=== PATIENT | female | born 1950 | race Caucasian/White ===

== ENCOUNTER 2018-01-05 21:47 | Emergency (ER) | payer MEDICARE, MEDICAID ==
[2018-01-05] MEDS ORDERED: Acetaminophen/HYDROcodone 325-10 MG Tab PO ONE (21:48)
[2018-01-05 22:16] VITALS: BP 154/57
--- NOTE | 2018-01-05 22:55 | EDM.PDOC ---
ED HPI GENERAL MEDICAL PROBLEM - General Chief Complaint: Lower Extremity Injury/Pain Stated Complaint: [id number] FELL-ID IS Time Seen by Provider: 01/05/18 22:51 Source of Information: Reports: Patient History Limitations: Reports: No Limitations - History of Present Illness INITIAL COMMENTS - FREE TEXT/NARRATIVE: fell onto right knee today, more swollen tyelnol not helping. Treatments PRECISION INSPECTOR: Reports: Acetaminophen, Other (see below) Other Treatments PRECISION INSPECTOR: icy hot patch. Right Knee Pain Score (Numeric/FACES): 8 - Related Data Allergies Allergy/AdvReac Type Severity Reaction Status Date / Time No Known Allergies Allergy Verified 01/05/18 22:12 Home Meds: Home Meds Albuterol [Proventil Neb Soln] 2.5 mg NEB Q4HRRT PRN #180 ml 01/03/15 [Rx] Albuterol/Ipratropium [DuoNeb 3.0-0.5 MG/3 ML] 3 ml NEB TIDRT #180 ml 01/03/15 [ Rx] Metoprolol Tartrate [Lopressor] 25 mg PO Q12HR tablet 01/03/15 [Rx] Tiotropium [Spiriva HandiHaler] 18 mcg INH DAILY cap 01/03/15 [Rx] guaiFENesin [Mucinex] 600 mg PO BID tab.er 01/03/15 [Rx] Roflumilast [Daliresp] 1 tab PO DAILY 01/05/18 [History] Past Medical History - Past Health History Medical/Surgical History: Denies Medical/Surgical History HEENT History: Reports: Impaired Vision Cardiovascular History: Reports: Hypertension Respiratory History: Reports: COPD 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 ED EXAM, GENERAL - Physical Exam Exam: See Below Exam Limited By: No Limitations General Appearance: Alert, WD/WN, Mild Distress, Other (knee pain) Ears: Hearing Grossly Normal Throat/Mouth: Normal Voice, No Airway Compromise Head: Atraumatic Neck: Non-Tender, Full Range of Motion Respiratory/Chest: No Respiratory Distress Cardiovascular: Regular Rate, Rhythm GI/Abdominal: Soft, Non-Tender Extremities: Other (right knee swollen tender R/P, NV wnl, gait limited to pain. ) Neurological: Alert, Oriented, Normal Cognition, No Motor/Sensory Deficits Psychiatric: Normal Affect, Normal Mood Skin Exam: Warm, Dry, Normal Color Lymphatic: No Adenopathy Course - Vital Signs Last Recorded V/S: Last Vital Signs Temp 37.3 C 01/05/18 22:14 Pulse 74 01/05/18 22:14 Resp 20 01/05/18 22:14 BP 154/57 H 01/05/18 22:14 Pulse Ox 97 01/05/18 22:14 - Orders/Labs/Meds Meds: Medications Discontinued Medications Generic Name Dose Route Start Last Admin Trade Name Freq PRN Reason Stop Dose Admin Ibuprofen 600 mg 01/05/18 22:51 Motrin PO 01/05/18 22:52 ONETIME ONE - Re-Assessments/Exams Free Text/Narrative Re-Assessment/Exam: 01/05/18 23:15 results discussed with pt. Departure - Departure Time of Disposition: 23:15 Disposition: Home, Self-Care 01 Condition: Good Clinical Impression: Knee effusion, right Patellar fracture Qualifiers: Encounter type: initial encounter Fracture type: closed Fracture morphology: transverse Fracture alignment: nondisplaced Laterality: right Qualified Code(s) : S82.034A - Nondisplaced transverse fracture of right patella, initial encounter for closed fracture - Discharge Information Instructions: Patellar Fracture, Adult Referrals: Cassidy Rowland PA-C [Primary Care Provider] - Forms: ED Department Discharge Additional Instructions: 1) elevate leg as much as possible next 3 to 4 days 2) wear knee immobilizer and use crutches 3) see clinic tomorrow for ORTHOPEDIC REFERRAL for PATELLA FRACTURE and KNEE EFFUSION rx togo; norco x 1
[2018-01-05] MEDS: Ibuprofen 600 MG Tab PO ONE (23:15)
[2018-01-05] MEDS ORDERED: Acetaminophen/HYDROcodone 325-10 MG Tab ONE (23:24)
== END 2018-01-05 23:30 | disposition home or self-care (01) ==
LOC: DL.ED 21:47
DX: S82.034A Nondisplaced transverse fracture of right patella, initial encounter for closed fracture (principal); Z79.899 Other long term (current) drug therapy; I10 Essential (primary) hypertension; J44.9 Chronic obstructive pulmonary disease, unspecified; W19.XXXA Unspecified fall, initial encounter
CPT/HCPCS: 73562; 99283; A9270

== ENCOUNTER 2019-03-29 01:01 | Emergency (ER) | payer MEDICARE, MEDICAID ==
[2019-03-29 01:13] VITALS: BP 190/103
[2019-03-29] MEDS ORDERED: Sodium Chloride 0.9% 10 ML Syringe FLUSH PRN (01:18)
--- NOTE | 2019-03-29 01:19 | EDM.PDOC ---
ED HPI GENERAL MEDICAL PROBLEM - General Chief Complaint: General Stated Complaint: NOT SURE WHATS GOING ON? Time Seen by Provider: 03/29/19 01:19 Source of Information: Reports: Patient, Family, RN, RN Notes Reviewed History Limitations: Reports: No Limitations - History of Present Illness INITIAL COMMENTS - FREE TEXT/NARRATIVE: Pt to ER with daughter with c/o increased SOB, and an ache in the right side of the neck, the chest, and the right upper arm. States there is intermittent tingling to the right lower arm and hand. Describes pain to the right axilla as "someone pulling the hair in the armpit". Denies recent fever or chills, N/V/D. States she has been belching quite a bit lately. Pt denies sore throat, cough. Admits to the dull ache in the center of the chest and increased SOB over the past few days. States she has a hx of HTN. States she is on 2L of O2 at all times. Onset: Gradual Bilateral Upper Arm Pain Score (Numeric/FACES): 3 - Related Data Allergies Allergy/AdvReac Type Severity Reaction Status Date / Time No Known Allergies Allergy Verified 03/29/19 01:06 Home Meds: Home Meds Albuterol [Proventil Neb Soln] 2.5 mg NEB Q4HRRT PRN #180 ml 01/03/15 [Rx] Albuterol/Ipratropium [DuoNeb 3.0-0.5 MG/3 ML] 3 ml NEB TIDRT #180 ml 01/03/15 [ Rx] Metoprolol Tartrate [Lopressor] 25 mg PO Q12HR tablet 01/03/15 [Rx] guaiFENesin [Mucinex] 600 mg PO BID tab.er 01/03/15 [Rx] Roflumilast [Daliresp] 1 tab PO DAILY 01/05/18 [History] Umeclidinium [place] [Incruse Ellipta*] 62.5 mcg IH DAILY 03/29/19 [History] Past Medical History - Past Health History Medical/Surgical History: Denies Medical/Surgical History HEENT History: Reports: Impaired Vision Cardiovascular History: Reports: Hypertension Respiratory History: Reports: COPD Gastrointestinal History: Reports: Chronic Constipation 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 ED EXAM, GENERAL - Physical Exam Exam: See Below Exam Limited By: No Limitations General Appearance: Alert, WD/WN, Mild Distress Eye Exam: Bilateral Eye: EOMI, Normal Inspection Ears: Normal External Exam, Hearing Grossly Normal Nose: Normal Inspection Throat/Mouth: Normal Inspection, Normal Lips, Normal Teeth, Normal Gums, Normal Oropharynx, Normal Voice, No Airway Compromise Head: Atraumatic, Normocephalic Neck: Supple, Full Range of Motion, Lymphadenopathy (R), Tender Lateral (right) Respiratory/Chest: Decreased Breath Sounds, Crackles (throughout), Other (mid chest tenderness) Cardiovascular: Normal Peripheral Pulses, Regular Rate, Rhythm, No Edema, No Gallop, No JVD, No Murmur, No Rub Peripheral Pulses: 2+: Radial (L), Radial (R) GI/Abdominal: Normal Bowel Sounds, Soft, Non-Tender (Female) Exam: Deferred Rectal (Female) Exam: Deferred Back Exam: Normal Inspection, Full Range of Motion Extremities: Normal Inspection, Normal Range of Motion, Non-Tender, Normal Capillary Refill, No Pedal Edema Neurological: Alert, Oriented, CN II-XII Intact, Normal Cognition, Normal Gait, Normal Reflexes, No Motor/Sensory Deficits Psychiatric: Normal Affect, Normal Mood Skin Exam: Warm, Dry, Intact, Normal Color, No Rash Lymphatic: No Adenopathy Course - Vital Signs Last Recorded V/S: Last Vital Signs Temp 98.4 F 03/29/19 01:12 Pulse 72 03/29/19 01:12 Resp 22 H 03/29/19 01:12 BP 190/103 H 03/29/19 01:12 Pulse Ox 91 L 03/29/19 01:12 - Orders/Labs/Meds Orders: Active Orders 24 hr Category Date Time Status EKG Documentation Completion [RC] STAT Care 03/29/19 01:18 Active Peripheral IV Care [RC] . DIRECTED Care 03/29/19 01:19 Active Chest 2V [CR] Urgent Exams 03/29/19 01:19 Taken Azithromycin [Zithromax] Med 03/29/19 02:20 Once 500 mg PO ONETIME ONE Sodium Chloride 0.9% [Saline Flush] Med 03/29/19 01:18 Active 10 ml FLUSH ASDIRECTED PRN Peripheral IV Insertion Adult [OM.PC] Stat Oth 03/29/19 01:18 Ordered Medication Orders Sodium Chloride (Saline Flush) 10 ml FLUSH ASDIRECTED PRN PRN Reason: Keep Vein Open Last Admin: 03/29/19 01:37 Dose: 10 ml Labs: Laboratory Tests 03/29/19 03/29/19 Range/Units 01:28 01:28 WBC 7.3 (5.0-10.0) 10^3/uL RBC 4.58 (4.2-5.4) 10^6/uL Hgb 13.0 (12.0-16.0) g/dL Hct 39.3 (37.0-47.0) % MCV 85.8 (80-100) fL MCH 28.4 (27.0-34.0) pg MCHC 33.1 (33.0-35.0) g/dL Plt Count 290 D (150-450) 10^3/uL Neut % (Auto) 68.1 (42.2-75.2) % Lymph % (Auto) 21.6 (20.5-50.1) % [place] % (Auto) 7.7 (2-8) % Eos % (Auto) 1.9 (1.0-3.0) % Baso % (Auto) 0.7 (0.0-1.0) % Sodium 130 L (135-145) mmol/L Potassium 4.2 (3.6-5.0) mmol/L Chloride 93 L (101-111) mmol/L Carbon Dioxide 28.0 (21.0-31.0) mmol/L Anion Gap 13.2 BUN 11 (7-18) mg/dL Creatinine 0.4 L (0.6-1.3) mg/dL Est Cr Clr Drug Dosing 114.54 mL/min Estimated GFR (MDRD) > 60 BUN/Creatinine Ratio 27.50 Glucose 107 H (74-105) mg/dL Calcium 9.1 (8.4-10.2) mg/dl Total Bilirubin 0.7 (0.2-1.0) mg/dL AST 17 (10-42) IU/L ALT 10 (10-60) IU/L Alkaline Phosphatase 82 (42-121) IU/L Troponin I < 0.02 (0.00-0.02) ng/ml B-Natriuretic Peptide 143 H (0-100) pg/ml Total Protein 7.7 (6.7-8.2) g/dl Albumin 3.9 (3.2-5.5) g/dl Globulin 3.8 Albumin/Globulin Ratio 1.03 Meds: Medications Generic Name Dose Route Start Last Admin Trade Name Freq PRN Reason Stop Dose Admin Sodium Chloride 10 ml 03/29/19 01:18 03/29/19 01:37 Saline Flush FLUSH 10 ml ASDIRECTED PRN Administration Keep Vein Open Discontinued Medications Generic Name Dose Route Start Last Admin Trade Name Freq PRN Reason Stop Dose Admin Methylprednisolone Sodium Succinate 125 mg 03/29/19 02:03 03/29/19 02:17 Solu-Medrol IVPUSH 03/29/19 02:04 125 mg ONETIME ONE Administration - Radiology Interpretation Free Text/Narrative:: Chest xray: FINDINGS: Lungs: Emphysematous changes. No evidence of pneumonia, pulmonary vascular congestion, or pulmonary edema. Pleural space: No pneumothorax. Small bilateral pleural effusions. Heart/Mediastinum: No cardiomegaly. Bones/joints: Severe bone demineralization. IMPRESSION: 1. Emphysematous changes. No evidence of pneumonia, pulmonary vascular congestion, or pulmonary edema. 2. Small bilateral pleural effusions. Thank you for allowing us to participate in the care of your patient. Dictated and Authenticated by: Joao Calloway MD 03/29/2019 2:10 AM Central Time ([place] & [place]) See rad report Departure - Departure Time of Disposition: 02:21 Disposition: Home, Self-Care 01 Condition: Fair Clinical Impression: COPD exacerbation - Discharge Information *PRESCRIPTION DRUG MONITORING PROGRAM REVIEWED*: No *COPY OF PRESCRIPTION DRUG MONITORING REPORT IN PATIENT AMANDO: No Instructions: Chronic Obstructive Pulmonary Disease Exacerbation, [id number] , Chronic Obstructive Pulmonary Disease, [id number] Forms: ED Department Discharge Additional Instructions: RX: Prednisone, Azithromycin Continue to use nebulizers and inhalers as directed Drink plenty of water and Gatorade Follow up with your primary care facility - My Orders Last 24 Hours: My Active Orders 03/29/19 01:18 EKG Documentation Completion [RC] STAT Sodium Chloride 0.9% [Saline Flush] 10 ml FLUSH ASDIRECTED PRN Peripheral IV Insertion Adult [OM.PC] Stat 03/29/19 01:19 Peripheral IV Care [RC] . DIRECTED Chest 2V [CR] Urgent 03/29/19 02:20 Azithromycin [Zithromax] 500 mg PO ONETIME ONE - Assessment/Plan Last 24 Hours: My Active Orders 03/29/19 01:18 EKG Documentation Completion [RC] STAT Sodium Chloride 0.9% [Saline Flush] 10 ml FLUSH ASDIRECTED PRN Peripheral IV Insertion Adult [OM.PC] Stat 03/29/19 01:19 Peripheral IV Care [RC] . DIRECTED Chest 2V [CR] Urgent 03/29/19 02:20 Azithromycin [Zithromax] 500 mg PO ONETIME ONE
[2019-03-29 01:52] LABS: ANION GAP 13.2; CHLORIDE,CL 93 mmol/L (101-111); SODIUM,NA 130 mmol/L (135-145)
[2019-03-29] MEDS ORDERED: methylPREDNISolone Sodium Succinate 125 MG/2 ML SDV IVPUSH ONE (02:03)
[2019-03-29] MEDS ORDERED: Azithromycin 250 MG Tab PO ONE (02:20)
== END 2019-03-29 02:32 | disposition home or self-care (01) ==
LOC: DL.ED 01:01
DX: J44.1 Chronic obstructive pulmonary disease with (acute) exacerbation (principal); I10 Essential (primary) hypertension; Z87.891 Personal history of nicotine dependence
CPT/HCPCS: 36415; 71046; 80053; 83880; 84484; 85025; 93005; 96374; 99285; A9270; J2930

== ENCOUNTER 2019-04-02 01:16 | Emergency (ER) | payer MEDICARE, MEDICAID ==
--- NOTE | 2019-04-02 01:39 | EDM.PDOC ---
ED HPI GENERAL MEDICAL PROBLEM - General Stated Complaint: CHEST HURTS Time Seen by Provider: 04/02/19 01:36 Source of Information: Reports: Patient History Limitations: Reports: No Limitations - History of Present Illness INITIAL COMMENTS - FREE TEXT/NARRATIVE: c/o heartburn pain in upper chest, denies SOB. ate meat loaf tonight and "burped " it back up and not vomited. did feel little better afterwards but pain returned. also noted her heart rate dropped to 50s at onetime then went back up. Upper Anterior Chest Pain Score (Numeric/FACES): 3 - Related Data Allergies Allergy/AdvReac Type Severity Reaction Status Date / Time No Known Allergies Allergy Verified 03/29/19 01:06 Home Meds: Home Meds Albuterol [Proventil Neb Soln] 2.5 mg NEB Q4HRRT PRN #180 ml 01/03/15 [Rx] Albuterol/Ipratropium [DuoNeb 3.0-0.5 MG/3 ML] 3 ml NEB TIDRT #180 ml 01/03/15 [ Rx] Metoprolol Tartrate [Lopressor] 25 mg PO Q12HR tablet 01/03/15 [Rx] guaiFENesin [Mucinex] 600 mg PO BID tab.er 01/03/15 [Rx] Roflumilast [Daliresp] 1 tab PO DAILY 01/05/18 [History] Umeclidinium [place] [Incruse Ellipta*] 62.5 mcg IH DAILY 03/29/19 [History] Azithromycin [Zithromax] 250 mg PO DAILY 04/02/19 [History] predniSONE 40 mg PO ASDIRECTED 04/02/19 [History] Past Medical History - Past Health History Medical/Surgical History: Denies Medical/Surgical History HEENT History: Reports: Impaired Vision Cardiovascular History: Reports: Hypertension Respiratory History: Reports: COPD Gastrointestinal History: Reports: Chronic Constipation 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 ED EXAM, GENERAL - Physical Exam Exam: See Below Exam Limited By: No Limitations General Appearance: Alert, WD/WN, Mild Distress Ears: Hearing Grossly Normal Throat/Mouth: Normal Voice, No Airway Compromise Head: Atraumatic Neck: Non-Tender, Full Range of Motion Respiratory/Chest: No Respiratory Distress, No Accessory Muscle Use, Rhonchi. No: Decreased Breath Sounds Cardiovascular: Regular Rate, Rhythm GI/Abdominal: Soft, Non-Tender Neurological: Alert, Oriented, Normal Cognition, Normal Gait, No Motor/Sensory Deficits Psychiatric: Normal Affect, Normal Mood Skin Exam: Warm, Dry, Normal Color Lymphatic: No Adenopathy Course - Vital Signs Last Recorded V/S: Last Vital Signs Temp 36.7 C 04/02/19 02:30 Pulse 64 04/02/19 02:30 Resp 20 04/02/19 02:30 BP 120/90 04/02/19 02:30 Pulse Ox 97 04/02/19 02:30 - Orders/Labs/Meds Orders: Active Orders 24 hr Category Date Time Status EKG Documentation Completion [RC] STAT Care 04/02/19 01:39 Active Chest 1V Frontal [CR] Urgent Exams 04/02/19 01:56 Ordered Labs: Laboratory Tests 04/02/19 04/02/19 04/02/19 Range/Units 01:50 01:50 01:50 WBC 8.7 (5.0-10.0) 10^3/uL RBC 4.45 (4.2-5.4) 10^6/uL Hgb 12.7 (12.0-16.0) g/dL Hct 38.1 (37.0-47.0) % MCV 85.6 (80-100) fL MCH 28.5 (27.0-34.0) pg MCHC 33.3 (33.0-35.0) g/dL Plt Count 303 (150-450) 10^3/uL Neut % (Auto) 71.6 (42.2-75.2) % Lymph % (Auto) 20.8 (20.5-50.1) % [place] % (Auto) 6.8 (2-8) % Eos % (Auto) 0.6 L (1.0-3.0) % Baso % (Auto) 0.2 (0.0-1.0) % Sodium 130 L (135-145) mmol/L Potassium 4.1 (3.6-5.0) mmol/L Chloride 93 L (101-111) mmol/L Carbon Dioxide 27.0 (21.0-31.0) mmol/L Anion Gap 14.1 BUN 18 (7-18) mg/dL Creatinine 0.5 L (0.6-1.3) mg/dL Est Cr Clr Drug Dosing 90.16 mL/min Estimated GFR (MDRD) > 60 BUN/Creatinine Ratio 36.00 Glucose 110 H (74-105) mg/dL Lactic Acid 0.7 (0.5-2.2) mmol/L Calcium 9.1 (8.4-10.2) mg/dl Total Bilirubin 0.6 (0.2-1.0) mg/dL AST 18 (10-42) IU/L ALT 13 (10-60) IU/L Alkaline Phosphatase 75 (42-121) IU/L Troponin I < 0.02 (0.00-0.02) ng/ml Total Protein 7.3 (6.7-8.2) g/dl Albumin 3.8 (3.2-5.5) g/dl Globulin 3.5 Albumin/Globulin Ratio 1.09 - Re-Assessments/Exams Free Text/Narrative Re-Assessment/Exam: 04/02/19 02:18 re-exam; pain all gone right now. 04/02/19 02:58 results discussed with pt who remains pain free. Departure - Departure Time of Disposition: 03:00 Disposition: Home, Self-Care 01 Condition: Good Clinical Impression: GERD (gastroesophageal reflux disease) Qualifiers: Esophagitis presence: with esophagitis Qualified Code(s): K21.0 - Gastro- esophageal reflux disease with esophagitis Instructions: Food Choices for Gastroesophageal Reflux Disease, Adult, Easy-to- Read Referrals: PCP,None [Primary Care Provider] - Additional Instructions: 1) follow up at clinic - My Orders Last 24 Hours: My Active Orders 04/02/19 01:39 EKG Documentation Completion [RC] STAT 04/02/19 01:56 Chest 1V Frontal [CR] Urgent - Assessment/Plan Last 24 Hours: My Active Orders 04/02/19 01:39 EKG Documentation Completion [RC] STAT 04/02/19 01:56 Chest 1V Frontal [CR] Urgent
[2019-04-02 02:14] LABS: ANION GAP 14.1; CHLORIDE,CL 93 mmol/L (101-111); SODIUM,NA 130 mmol/L (135-145)
[2019-04-02 02:48] VITALS: BP 120/90
== END 2019-04-02 03:10 | disposition home or self-care (01) ==
LOC: DL.ED 01:16
DX: K21.0 Gastro-esophageal reflux disease with esophagitis (principal); I10 Essential (primary) hypertension; J44.9 Chronic obstructive pulmonary disease, unspecified; M19.90 Unspecified osteoarthritis, unspecified site; Z79.899 Other long term (current) drug therapy
CPT/HCPCS: 36415; 71045; 80053; 83605; 84484; 85025; 93005; 99285-25

== ENCOUNTER 2020-07-19 12:30 | Emergency (ER) | payer MEDICARE, SELFPAY ==
[2020-07-19 13:04] VITALS: BP 162/124; PULSE 94
[2020-07-19 14:16] LABS: ANION GAP 9.5 mEq/L (7-13); CHLORIDE,CL 96 mmol/L (98-107); SODIUM,NA 132 mmol/L (136-145)
--- NOTE | 2020-07-19 15:34 | EDM.PDOC ---
ED HPI GENERAL MEDICAL PROBLEM - General Chief Complaint: Respiratory Problem Stated Complaint: HEAD COLD CANT BREATH COUGHING UP FLEM Time Seen by Provider: 07/19/20 12:40 Source of Information: Reports: Patient, RN, RN Notes Reviewed History Limitations: Reports: No Limitations - History of Present Illness INITIAL COMMENTS - FREE TEXT/NARRATIVE: Patient is a 70-year-old female who presents to ER with complaint of increased shortness of breath and head cold. Her nose is stuffed up and dark yellow sputum. No cough. he is on 02 at 2 liters at the home. She has constipation. She has chest pain prior to belching with increased shortness of breathing after moving around. No fever, chills, nausea, vomiting or diarrhea. Onset: Gradual Duration: Getting Worse Location: Reports: Chest Quality: Reports: Ache Severity: Severe Improves with: Reports: None Worsens with: Reports: None Associated Symptoms: Reports: No Other Symptoms - Related Data Allergies Allergy/AdvReac Type Severity Reaction Status Date / Time No Known Allergies Allergy Verified 07/19/20 12:50 Home Meds: Home Meds Albuterol [Proventil Neb Soln] 2.5 mg NEB Q4HRRT PRN #180 ml 01/03/15 [Rx] Albuterol/Ipratropium [DuoNeb 3.0-0.5 MG/3 ML] 3 ml NEB TIDRT #180 ml 01/03/15 [Rx] Metoprolol Tartrate [Lopressor] 25 mg PO Q12HR tablet 01/03/15 [Rx] guaiFENesin [Mucinex] 600 mg PO BID tab.er 01/03/15 [Rx] Roflumilast [Daliresp] 1 tab PO DAILY 01/05/18 [History] Umeclidinium [place] [Incruse Ellipta*] 62.5 mcg IH DAILY 03/29/19 [History] Past Medical History - Past Health History Medical/Surgical History: Denies Medical/Surgical History HEENT History: Reports: Impaired Vision Cardiovascular History: Reports: Hypertension Respiratory History: Reports: COPD, Other (See Below) Other Respiratory History: Home O2 at 2L/NC Gastrointestinal History: Reports: Chronic Constipation 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 ED EXAM, GENERAL - Physical Exam Exam: See Below Exam Limited By: No Limitations General Appearance: Alert, WD/WN, No Apparent Distress Eye Exam: Bilateral Eye: EOMI, Normal Inspection, PERRL Ears: Normal External Exam, Normal Canal, Hearing Grossly Normal, Normal TMs Nose: Other ( with 02 with nasal cannula) Throat/Mouth: Normal Inspection, Normal Lips, Normal Teeth, Normal Gums, Normal Oropharynx, Normal Voice, No Airway Compromise Head: Atraumatic, Normocephalic Neck: Normal Inspection, Supple, Non-Tender, Full Range of Motion Respiratory/Chest: Other (decreased with crackles throughout. ) Cardiovascular: Normal Peripheral Pulses, Regular Rate, Rhythm, No Edema, No Gallop, No JVD, No Murmur, No Rub GI/Abdominal: Normal Bowel Sounds, Soft, Non-Tender, No Organomegaly, No Distention, No Abnormal Bruit, No Mass (Female) Exam: Deferred Rectal (Female) Exam: Deferred Back Exam: Normal Inspection, Full Range of Motion, NT Extremities: Other (lower extremities edema +2. ) Neurological: Alert, Oriented, CN II-XII Intact, Normal Cognition, Normal Gait, Normal Reflexes, No Motor/Sensory Deficits Psychiatric: Normal Affect, Normal Mood Skin Exam: Warm, Dry, Intact, Normal Color, No Rash Lymphatic: No Adenopathy Course - Vital Signs Last Recorded V/S: Last Vital Signs Temp 97.9 F 07/19/20 12:39 Pulse 94 07/19/20 12:39 Resp 34 H 07/19/20 12:39 BP 162/124 H 07/19/20 12:39 Pulse Ox 93 L 07/19/20 12:39 - Orders/Labs/Meds Orders: Active Orders 24 hr Category Date Time Status CULTURE BLOOD [BC] Stat Lab 07/19/20 13:38 Received CULTURE BLOOD [BC] Stat Lab 07/19/20 13:42 Received CULTURE URINE [RM] Stat Lab 07/19/20 16:59 Received Blood Culture x2 Reflex Set [OM.PC] Stat Oth 07/19/20 13:21 Ordered Isolation [COMM] Routine Oth 07/19/20 13:22 Active Labs: Laboratory Tests 07/19/20 07/19/20 07/19/20 Range/Units 13:36 13:42 13:42 WBC 10.8 H (5.0-10.0) 10^3/uL RBC 4.53 (4.2-5.4) 10^6/uL Hgb 13.0 (12.0-16.0) g/dL Hct 39.8 (37.0-47.0) % MCV 87.9 (80-100) fL MCH 28.7 (27.0-34.0) pg MCHC 32.7 L (33.0-35.0) g/dL Plt Count 319 (150-450) 10^3/uL Neut % (Auto) 84.3 H (42.2-75.2) % Lymph % (Auto) 9.0 L (20.5-50.1) % [place] % (Auto) 5.7 (2-8) % Eos % (Auto) 0.7 L (1.0-3.0) % Baso % (Auto) 0.3 (0.0-1.0) % PT (9.0-12.0) SEC INR (0.9-1.2) D-Dimer, Quantitative (0-400) ng/mL Sodium 132 L (136-145) mmol/L Potassium 4.5 (3.5-5.1) mmol/L Chloride 96 L (98-107) mmol/L Carbon Dioxide 31 (21-32) mmol/L Anion Gap 9.5 (7-13) mEq/L BUN 10 (7-18) mg/dL Creatinine 0.60 (0.55-1.02) mg/dL Est Cr Clr Drug Dosing 75.25 mL/min Estimated GFR (MDRD) > 60 BUN/Creatinine Ratio 16.7 (No establ ref range) Glucose 117 H (74-99) mg/dL Calcium 9.7 (8.5-10.1) mg/dL Total Bilirubin 0.4 (0.2-1.0) mg/dL AST 16 (15-37) U/L ALT 16 (14-59) U/L Alkaline Phosphatase 99 (46-116) U/L Troponin I (0.000-0.056) ng/mL C-Reactive Protein 4.0 H (0.0-0.9) mg/dL B-Natriuretic Peptide 338 H (0-100) pg/ml Total Protein 7.9 (6.4-8.2) g/dL Albumin 3.3 L (3.4-5.0) g/dL Globulin 4.6 Albumin/Globulin Ratio 0.72 Urine Color (YELLOW) Urine Appearance (CLEAR) Urine pH (5.0-9.0) Ur Specific [place] (1.005-1.030) Urine Protein (NEGATIVE) Urine Glucose (UA) (NEGATIVE) Urine Ketones (NEGATIVE) Urine Occult Blood (NEGATIVE) Urine Nitrite (NEGATIVE) Urine Bilirubin (NEGATIVE) Urine Urobilinogen (0.2-1.0) mg/dL Ur Leukocyte Esterase (NEGATIVE) Urine RBC /HPF Urine WBC (0-5/HPF) /HPF Ur Epithelial Cells (NOT SEEN) /HPF Amorphous Sediment (NOT SEEN) /HPF Urine Bacteria (0-FEW/HPF) /HPF Urine Mucus (NOT SEEN) /LPF SARS-CoV-2 RNA (PAULINA) Negative (NEGATIVE) 07/19/20 07/19/20 07/19/20 Range/Units 13:42 13:42 16:59 WBC (5.0-10.0) 10^3/uL RBC (4.2-5.4) 10^6/uL Hgb (12.0-16.0) g/dL Hct (37.0-47.0) % MCV (80-100) fL MCH (27.0-34.0) pg MCHC (33.0-35.0) g/dL Plt Count (150-450) 10^3/uL Neut % (Auto) (42.2-75.2) % Lymph % (Auto) (20.5-50.1) % [place] % (Auto) (2-8) % Eos % (Auto) (1.0-3.0) % Baso % (Auto) (0.0-1.0) % PT 10.1 (9.0-12.0) SEC INR 1.1 (0.9-1.2) D-Dimer, Quantitative 142 (0-400) ng/mL Sodium (136-145) mmol/L Potassium (3.5-5.1) mmol/L Chloride (98-107) mmol/L Carbon Dioxide (21-32) mmol/L Anion Gap (7-13) mEq/L BUN (7-18) mg/dL Creatinine (0.55-1.02) mg/dL Est Cr Clr Drug Dosing mL/min Estimated GFR (MDRD) BUN/Creatinine Ratio (No establ ref range) Glucose (74-99) mg/dL Calcium (8.5-10.1) mg/dL Total Bilirubin (0.2-1.0) mg/dL AST (15-37) U/L ALT (14-59) U/L Alkaline Phosphatase (46-116) U/L Troponin I < 0.017 (0.000-0.056) ng/mL C-Reactive Protein (0.0-0.9) mg/dL B-Natriuretic Peptide (0-100) pg/ml Total Protein (6.4-8.2) g/dL Albumin (3.4-5.0) g/dL Globulin Albumin/Globulin Ratio Urine Color Yellow (YELLOW) Urine Appearance Slightly cloudy (CLEAR) Urine pH 6.0 (5.0-9.0) Ur Specific [place] 1.025 (1.005-1.030) Urine Protein Negative (NEGATIVE) Urine Glucose (UA) Negative (NEGATIVE) Urine Ketones 15 H (NEGATIVE) Urine Occult Blood Negative (NEGATIVE) Urine Nitrite Negative (NEGATIVE) Urine Bilirubin Negative (NEGATIVE) Urine Urobilinogen 0.2 (0.2-1.0) mg/dL Ur Leukocyte Esterase Small H (NEGATIVE) Urine RBC 0-5 /HPF Urine WBC 30-40 H (0-5/HPF) /HPF Ur Epithelial Cells Few (NOT SEEN) /HPF Amorphous Sediment Few (NOT SEEN) /HPF Urine Bacteria Few (0-FEW/HPF) /HPF Urine Mucus Moderate H (NOT SEEN) /LPF SARS-CoV-2 RNA (PAULINA) (NEGATIVE) Meds: Medications Discontinued Medications Generic Name Dose Route Start Last Admin Trade Name Freq PRN Reason Stop Dose Admin Furosemide 40 mg 07/19/20 16:28 07/19/20 16:48 Lasix PO 07/19/20 16:29 40 mg ONETIME ONE Administration Levofloxacin 500 mg 07/19/20 16:29 07/19/20 16:48 Levaquin PO 07/19/20 16:30 500 mg ONETIME ONE Administration - Radiology Interpretation Free Text/Narrative:: Chest xray: PROCEDURE INFORMATION: Exam: XR Chest, 1 View Exam date and time: 07/19/2020 2:59 PM Age: 70 years old Clinical indication: Other: Chest pain TECHNIQUE: Imaging protocol: XR of the chest Views: 1 view. COMPARISON: CR Chest 2V 03/19/2017 5:18 PM FINDINGS: Lungs: Chronic appearing interstitial changes are present with more focal airspace opacity within the right lower lobe. The finding is not could represent pneumonia. There is no pulmonary edema. Pleural space: Unremarkable. No pleural effusion. No pneumothorax. Heart/Mediastinum: Heart size is mildly prominent. Bones/joints: Unremarkable. IMPRESSION: Chronic appearing interstitial change with more focal airspace opacity in the right lower lobe concerning for possible pneumonia. Thank you for allowing us to participate in the care of your patient. Dictated and Authenticated by: Johnny Hemphill MD 07/19/2020 4:19 PM Central Time ([place] & [place]) See rad report Departure - Departure Time of Disposition: 16:27 Disposition: Home, Self-Care 01 Condition: Fair Clinical Impression: Pneumonia Qualifiers: Pneumonia type: due to unspecified organism Laterality: right Lung location: lower lobe of lung Qualified Code(s): J18.9 - Pneumonia, unspecified organism - Discharge Information *PRESCRIPTION DRUG MONITORING PROGRAM REVIEWED*: No *COPY OF PRESCRIPTION DRUG MONITORING REPORT IN PATIENT AMANDO: No Instructions: Community-Acquired Pneumonia, Adult, [id number] Referrals: PCP,None [Primary Care Provider] - Forms: ED Department Discharge Additional Instructions: Rx: Levaquin Follow-up with your primary care provider next week in the clinic Return to the ER with any worsening of symptoms Sepsis Event Note (ED) - Evaluation Sepsis Screening Result: Possible Sepsis Risk - Focused Exam Vital Signs: Vital Signs Temp Pulse Resp BP Pulse Ox 07/19/20 12:39 97.9 F 94 34 H 162/124 H 93 L - My Orders Last 24 Hours: My Active Orders 07/19/20 13:21 Blood Culture x2 Reflex Set [OM.PC] Stat 07/19/20 13:22 Isolation [COMM] Routine 07/19/20 13:38 CULTURE BLOOD [BC] Stat 07/19/20 13:42 CULTURE BLOOD [BC] Stat 07/19/20 16:59 CULTURE URINE [RM] Stat - Assessment/Plan Last 24 Hours: My Active Orders 07/19/20 13:21 Blood Culture x2 Reflex Set [OM.PC] Stat 07/19/20 13:22 Isolation [COMM] Routine 07/19/20 13:38 CULTURE BLOOD [BC] Stat 07/19/20 13:42 CULTURE BLOOD [BC] Stat 07/19/20 16:59 CULTURE URINE [RM] Stat
[2020-07-19] MEDS ORDERED: Furosemide 40 MG Tab PO ONE (16:28)
[2020-07-19] MEDS ORDERED: Levofloxacin 500 MG Tab PO ONE (16:29)
== END 2020-07-19 17:22 | disposition home or self-care (01) ==
LOC: DL.ED 12:30
DX: J18.9 Pneumonia, unspecified organism (principal); Z20.828 Contact with and (suspected) exposure to other viral communicable diseases; I10 Essential (primary) hypertension; J44.9 Chronic obstructive pulmonary disease, unspecified; Z87.891 Personal history of nicotine dependence; Z79.899 Other long term (current) drug therapy
CPT/HCPCS: 36415; 71045; 80053; 81001; 83880; 84484; 85025; 85379; 85610; 86140; 87040; 87086; 87804; 93005; 99285; A9270; U0002; 99283

== ENCOUNTER 2020-11-09 08:42 | Inpatient (IN) | payer MEDICARE, OTHER ==
[2020-11-09] MEDS ORDERED: Albuterol/Ipratropium 3.0-0.5 MG/3 ML Neb Soln NEB ONE (08:45)
[2020-11-09] MEDS ORDERED: Sodium Chloride 0.9% 10 ML Syringe FLUSH PRN (08:45)
--- NOTE | 2020-11-09 08:45 | EDM.PDOC ---
ED HPI GENERAL MEDICAL PROBLEM - General Chief Complaint: Respiratory Problem Stated Complaint: copd Time Seen by Provider: 11/09/20 08:44 Source of Information: Reports: Patient, Old Records, RN, RN Notes Reviewed History Limitations: Reports: No Limitations - History of Present Illness INITIAL COMMENTS - FREE TEXT/NARRATIVE: Pt presents to ER with c/o several days of progressively worsening shortness of breath per daughter, but much worse breathing today per pt. Pt reports Hx of COPD. She is continuous supplemental home oxygen dependent at 2L/min. Denies chest pain, fever, or hemoptysis. Admits to generalized weakness, FARRAR, orthopnea, and mild pedal edema. Hx of chronic A-fib but not on anticoagulation. Pt states she has been told in the past that she may have CHF, but has not been treated for it. She has not taken any of her medications so far today. 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 - Related Data Allergies Allergy/AdvReac Type Severity Reaction Status Date / Time No Known Allergies Allergy Verified 11/09/20 08:51 Home Meds: Home Meds Albuterol/Ipratropium [DuoNeb 3.0-0.5 MG/3 ML] 3 ml NEB TIDRT #180 ml 01/03/15 [Rx] guaiFENesin [Mucinex] 600 mg PO BID tab.er 01/03/15 [Rx] Roflumilast [Daliresp] 1 tab PO DAILY 01/05/18 [History] Umeclidinium [place] [Incruse Ellipta*] 62.5 mcg IH DAILY 03/29/19 [History] Albuterol [Proventil Neb Soln] 2.5 mg NEB QID PRN 11/09/20 [History] Metoprolol Tartrate [Lopressor] 25 mg PO BID 11/09/20 [History] Roflumilast [Daliresp] 500 mcg PO DAILY 11/09/20 [History] Past Medical History - Past Health History Medical/Surgical History: Denies Medical/Surgical History HEENT History: Reports: Impaired Vision Cardiovascular History: Reports: Afib, Hypertension Respiratory History: Reports: COPD, Other (See Below) Other Respiratory History: Home O2 at 2L/NC Gastrointestinal History: Reports: Chronic Constipation 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 ED EXAM, GENERAL - Physical Exam Exam: See Below Exam Limited By: No Limitations General Appearance: Alert, Anxious, Thin, Other (Frail, elderly, chronically ill but non-toxic appearing female) Eye Exam: Bilateral Eye: Normal Inspection Nose: Normal Inspection, Normal Mucosa, No Blood Throat/Mouth: Normal Lips, Normal Voice, No Airway Compromise. No: Perioral Cyanosis Head: Atraumatic, Normocephalic Neck: Normal Inspection, Supple, Non-Tender, Full Range of Motion Respiratory/Chest: Chest Non-Tender, Decreased Breath Sounds, Crackles, Rales, Wheezing, Prolonged Expiration, Other (Increased work of breathing, speaking 3-4 word sentences). No: Rhonchi Cardiovascular: Tachycardia, Irregularly Irregular GI/Abdominal: Normal Bowel Sounds, Soft, Non-Tender, No Organomegaly, No Distention, No Abnormal Bruit, No Mass Back Exam: Normal Inspection Extremities: Normal Inspection, Normal Range of Motion, Non-Tender, Normal Capillary Refill, Pedal Edema (Trace) Neurological: Alert, Oriented, CN II-XII Intact, Normal Cognition, No Motor/Sensory Deficits Psychiatric: Anxious Skin Exam: Warm, Dry, Intact, Normal Color, No Rash #1 Interpretation EKG Date: 11/09/20 Time: 08:53 Rhythm: A-Fib Rate (Beats/Min): 128 [place]: Normal P-Wave: Absent QRS: Other (LVH) ST-T: Depressed (in lateral leads) QT: Normal Comparison: NA - No Prior EKG Course - Vital Signs Last Recorded V/S: Last Vital Signs Temp 97.2 F 11/09/20 08:51 Pulse 122 H 11/09/20 08:51 Resp 28 H 11/09/20 08:51 BP 162/92 H 11/09/20 08:51 Pulse Ox 97 11/09/20 08:51 - Orders/Labs/Meds Orders: Active Orders 24 hr Category Date Time Status EKG 12 Lead [EKG Documentation Completion] [RC] STAT Care 11/09/20 08:46 Active Peripheral IV Care [RC] . DIRECTED Care 11/09/20 08:46 Active RT Aerosol Therapy [RC] ASDIRECTED Care 11/09/20 08:45 Active ABG [BLOOD GAS ARTERIAL] [BG] Stat Lab 11/09/20 09:50 Received CORONAVIRUS COVID-19 PAULINA [MOLEC] Stat Lab 11/09/20 09:35 Received CULTURE BLOOD [BC] Stat Lab 11/09/20 08:50 Results CULTURE BLOOD [BC] Stat Lab 11/09/20 09:13 Received Levofloxacin/Dextrose 5%-Water [Levaquin in D5W 500 MG/ Med 11/09/20 09:31 Active 100 ML] 500 mg Premix Bag 1 bag IV ONETIME Sodium Chloride 0.9% [Saline Flush] Med 11/09/20 08:45 Active 10 ml FLUSH ASDIRECTED PRN Blood Culture x2 Reflex Set [OM.PC] Stat Oth 11/09/20 08:45 Ordered Peripheral IV Insertion Adult [OM.PC] Stat Oth 11/09/20 08:46 Ordered Medication Orders Levofloxacin/Dextrose 500 mg/ (Premix) 100 mls @ 100 mls/hr IV ONETIME ONE Stop: 11/09/20 10:30 Last Admin: 11/09/20 09:56 Dose: 100 mls/hr Documented by: GREGG Sodium Chloride (Sodium Chloride 0.9% 10 Ml Syringe) 10 ml FLUSH ASDIRECTED PRN PRN Reason: Keep Vein Open Last Admin: 11/09/20 09:08 Dose: 10 ml Documented by: GREGG Labs: Laboratory Tests 11/09/20 11/09/20 11/09/20 Range/Units 08:50 08:50 08:50 WBC 12.5 H (5.0-10.0) 10^3/uL RBC 4.96 (4.2-5.4) 10^6/uL Hgb 13.9 (12.0-16.0) g/dL Hct 43.8 (37.0-47.0) % MCV 88.3 (80-100) fL MCH 28.0 (27.0-34.0) pg MCHC 31.7 L (33.0-35.0) g/dL Plt Count 366 (150-450) 10^3/uL Neut % (Auto) 59.4 (42.2-75.2) % Lymph % (Auto) 32.3 (20.5-50.1) % [place] % (Auto) 6.4 (2-8) % Eos % (Auto) 1.7 (1.0-3.0) % Baso % (Auto) 0.2 (0.0-1.0) % Sodium 138 (136-145) mmol/L Potassium 4.5 (3.5-5.1) mmol/L Chloride 100 (98-107) mmol/L Carbon Dioxide 25 (21-32) mmol/L Anion Gap 17.5 H (7-13) mEq/L BUN 14 (7-18) mg/dL Creatinine 0.65 (0.55-1.02) mg/dL Est Cr Clr Drug Dosing TNP Estimated GFR (MDRD) > 60 BUN/Creatinine Ratio 21.5 (No establ ref range) Glucose 126 H (74-99) mg/dL Lactic Acid 2.3 H* (0.4-2.0) mmol/L Calcium 8.8 (8.5-10.1) mg/dL Magnesium (1.8-2.4) mg/dL Total Bilirubin 0.4 (0.2-1.0) mg/dL AST 18 (15-37) U/L ALT 20 (14-59) U/L Alkaline Phosphatase 105 (46-116) U/L Troponin I < 0.017 (0.000-0.056) ng/mL B-Natriuretic Peptide 423 H (0-100) pg/ml Total Protein 7.7 (6.4-8.2) g/dL Albumin 3.6 (3.4-5.0) g/dL Globulin 4.1 Albumin/Globulin Ratio 0.9 TSH, Ultra Sensitive (0.36-3.74) uIU/mL 11/09/20 Range/Units 09:13 WBC (5.0-10.0) 10^3/uL RBC (4.2-5.4) 10^6/uL Hgb (12.0-16.0) g/dL Hct (37.0-47.0) % MCV (80-100) fL MCH (27.0-34.0) pg MCHC (33.0-35.0) g/dL Plt Count (150-450) 10^3/uL Neut % (Auto) (42.2-75.2) % Lymph % (Auto) (20.5-50.1) % [place] % (Auto) (2-8) % Eos % (Auto) (1.0-3.0) % Baso % (Auto) (0.0-1.0) % Sodium (136-145) mmol/L Potassium (3.5-5.1) mmol/L Chloride (98-107) mmol/L Carbon Dioxide (21-32) mmol/L Anion Gap (7-13) mEq/L BUN (7-18) mg/dL Creatinine (0.55-1.02) mg/dL Est Cr Clr Drug Dosing Estimated GFR (MDRD) BUN/Creatinine Ratio (No establ ref range) Glucose (74-99) mg/dL Lactic Acid (0.4-2.0) mmol/L Calcium (8.5-10.1) mg/dL Magnesium 2.0 (1.8-2.4) mg/dL Total Bilirubin (0.2-1.0) mg/dL AST (15-37) U/L ALT (14-59) U/L Alkaline Phosphatase (46-116) U/L Troponin I (0.000-0.056) ng/mL B-Natriuretic Peptide (0-100) pg/ml Total Protein (6.4-8.2) g/dL Albumin (3.4-5.0) g/dL Globulin Albumin/Globulin Ratio TSH, Ultra Sensitive 3.61 (0.36-3.74) uIU/mL Meds: Medications Generic Name Dose Route Start Last Admin Trade Name Freq PRN Reason Stop Dose Admin Levofloxacin/Dextrose 500 mg/ 100 mls @ 100 mls/hr 11/09/20 09:31 11/09/20 09:56 Premix IV 11/09/20 10:30 100 mls/hr ONETIME ONE Administration Sodium Chloride 10 ml 11/09/20 08:45 11/09/20 09:08 Sodium Chloride 0.9% 10 Ml Syringe FLUSH 10 ml ASDIRECTED PRN Administration Keep Vein Open Discontinued Medications Generic Name Dose Route Start Last Admin Trade Name Michael PRN Reason Stop Dose Admin Albuterol/Ipratropium 3 ml 11/09/20 08:45 11/09/20 09:08 Albuterol/Ipratropium 3.0-0.5 Mg/3 Ml Neb Soln NEB 11/09/20 08:46 3 ml ONETIME ONE Administration Diltiazem HCl 20 mg 11/09/20 09:37 11/09/20 09:56 Diltiazem 25 Mg/5 Ml Sdv IVPUSH 11/09/20 09:38 20 mg ONETIME ONE Administration Furosemide 40 mg 11/09/20 09:31 11/09/20 09:56 Furosemide 40 Mg/4 Ml Vial IVPUSH 11/09/20 09:32 40 mg NOW ONE Administration Methylprednisolone Sodium Succinate 125 mg 11/09/20 08:46 11/09/20 09:08 Methylprednisolone Sodium Succinate 125 Mg/2 Ml Sdv IVPUSH 11/09/20 08:47 125 mg ONETIME ONE Administration - Radiology Interpretation Free Text/Narrative:: [facility] Final Radiology Report Call: [phone] assistance Online chat: [email or web address] Name: BILLY HILL Age: 70Years F Date: 11/09/2020 SSN: -- : [id number] Study: CR CHEST 1V FRONTAL Requesting Physician: RUKHSANA JULIEN Images: 1 Addl Studies: Provided Clinical History: short of breath, COPD Contrast: Contrast Medium: Contrast Amount: Contrast Method: CONFIDENTIALITY STATEMENT This report is intended only for use by the referring physician, and only in accordance with law. If you received this in error, call [phone]. Page 1 of 1 PROCEDURE INFORMATION: Exam: XR Chest Exam date and time: 11/09/2020 8:59 AM Age: 70 years old Clinical indication: Shortness of breath; Additional info: Short of breath, copd TECHNIQUE: Imaging protocol: XR of the chest Views: 1 view. COMPARISON: CR Chest 2V 10/24/2020 12:16 PM FINDINGS: Lungs: Coarse diffuse bilateral interstitial prominence is slightly progressed from 10/24/2020. Pleural spaces: New fluid or thickened pleura in the costophrenic angles. Heart/Mediastinum: Cardiomegaly. Vasculature: Aortic calcifications. Bones/joints: Degenerative arthritis in the shoulders. IMPRESSION: 1. Diffuse coarse bilateral interstitial prominence slightly progressed since 10/24/2020 suggesting progression of edema or infiltrate in the setting of chronic interstitial fibrosis. 2. New minimal fluid or thickened pleura in the costophrenic angles. Thank you for allowing us to participate in the care of your patient. Dictated and Authenticated by: Josselyn Warren MD 11/09/2020 9:15 AM Central Time ([place] & [place]) Departure - Departure Time of Disposition: 10:21 (admitted to Dr. Castillo) Disposition: Admitted As Inpatient 64 Condition: Fair Clinical Impression: Acute exacerbation of chronic obstructive pulmonary disease (COPD), Atrial fibrillation with rapid ventricular response, Hypoxemia, Oxygen dependent - Discharge Information *PRESCRIPTION DRUG MONITORING PROGRAM REVIEWED*: Not Applicable *COPY OF PRESCRIPTION DRUG MONITORING REPORT IN PATIENT AMANDO: Not Applicable Forms: ED Department Discharge Sepsis Event Note (ED) - Focused Exam Vital Signs: Vital Signs Temp Pulse Resp BP Pulse Ox 11/09/20 08:51 97.2 F 122 H 28 H 162/92 H 97 - My Orders Last 24 Hours: My Active Orders 11/09/20 08:45 RT Aerosol Therapy [RC] ASDIRECTED Sodium Chloride 0.9% [Saline Flush] 10 ml FLUSH ASDIRECTED PRN Blood Culture x2 Reflex Set [OM.PC] Stat 11/09/20 08:46 EKG 12 Lead [EKG Documentation Completion] [RC] STAT Peripheral IV Care [RC] . DIRECTED Peripheral IV Insertion Adult [OM.PC] Stat 11/09/20 08:50 CULTURE BLOOD [BC] Stat 11/09/20 09:13 CULTURE BLOOD [BC] Stat 11/09/20 09:31 Levofloxacin/Dextrose 5%-Water [Levaquin in D5W 500 MG/100 ML] 500 mg Premix Bag 1 bag IV ONETIME 11/09/20 09:35 CORONAVIRUS COVID-19 [place]IL[place] [MOLEC] Stat 11/09/20 09:50 ABG [BLOOD GAS ARTERIAL] [BG] Stat - Assessment/Plan Last 24 Hours: My Active Orders 11/09/20 08:45 RT Aerosol Therapy [RC] ASDIRECTED Sodium Chloride 0.9% [Saline Flush] 10 ml FLUSH ASDIRECTED PRN Blood Culture x2 Reflex Set [OM.PC] Stat 11/09/20 08:46 EKG 12 Lead [EKG Documentation Completion] [RC] STAT Peripheral IV Care [RC] . DIRECTED Peripheral IV Insertion Adult [OM.PC] Stat 11/09/20 08:50 CULTURE BLOOD [BC] Stat 11/09/20 09:13 CULTURE BLOOD [BC] Stat 11/09/20 09:31 Levofloxacin/Dextrose 5%-Water [Levaquin in D5W 500 MG/100 ML] 500 mg Premix Bag 1 bag IV ONETIME 11/09/20 09:35 CORONAVIRUS COVID-19 PAULINA [MOLEC] Stat 11/09/20 09:50 ABG [BLOOD GAS ARTERIAL] [BG] Stat
[2020-11-09] MEDS ORDERED: methylPREDNISolone Sodium Succinate 125 MG/2 ML SDV IVPUSH ONE (08:46)
--- NOTE | 2020-11-09 09:15 | CR ---
PROCEDURE INFORMATION: Exam: XR Chest Exam date and time: 11/09/2020 8:59 AM Age: 70 years old Clinical indication: Shortness of breath; Additional info: Short of breath, copd TECHNIQUE: Imaging protocol: XR of the chest Views: 1 view. COMPARISON: CR Chest 2V 10/24/2020 12:16 PM FINDINGS: Lungs: Coarse diffuse bilateral interstitial prominence is slightly progressed from 10/24/2020. Pleural spaces: New fluid or thickened pleura in the costophrenic angles. Heart/Mediastinum: Cardiomegaly. Vasculature: Aortic calcifications. Bones/joints: Degenerative arthritis in the shoulders. IMPRESSION: 1. Diffuse coarse bilateral interstitial prominence slightly progressed since 10/24/2020 suggesting progression of edema or infiltrate in the setting of chronic interstitial fibrosis. 2. New minimal fluid or thickened pleura in the costophrenic angles.
[2020-11-09 09:31] LABS: ANION GAP 17.5 mEq/L (7-13); CHLORIDE,CL 100 mmol/L (98-107); SODIUM,NA 138 mmol/L (136-145)
[2020-11-09] MEDS ORDERED: Furosemide 40 MG/4 ML VIAL IVPUSH ONE (09:31)
[2020-11-09] MEDS ORDERED: Levofloxacin/Dextrose 5%-Water 500 MG in Premix Bag 1 BAG IV ONE (09:31)
[2020-11-09] MEDS ORDERED: Diltiazem 25 MG/5 ML SDV IVPUSH ONE ×3 (09:37→15:51)
[2020-11-09 10:18] LABS: BASE EXCESS ARTERIAL -2 mmol/L ((-2)-(+3)); BICARBONATE,ARTERIAL 26.2 mmol/L (22-26); O2 DELIVERY DEVICE OM; O2 SATURATION ARTERIAL 98 % (95-100); PCO2 ARTERIAL 60 mmHg (35-45); PO2 ARTERIAL 102 mmHg (70-100)
[2020-11-09 10:19] LABS: ALLEN TEST POSITIVE; O2 FLOW RATE 7
[2020-11-09] MEDS ORDERED: Docusate Sodium 100 MG Cap PO PRN (11:47)
[2020-11-09] MEDS ORDERED: Bisacodyl 5 MG Tab PO PRN (11:47)
[2020-11-09] MEDS ORDERED: Polyethylene Glycol 3350 Powder 17 GM Packet PO PRN (11:47)
[2020-11-09] MEDS ORDERED: Albuterol/Ipratropium 3.0-0.5 MG/3 ML Neb Soln NEB PRN (11:47)
[2020-11-09] MEDS ORDERED: Acetaminophen 325 MG Tab PO PRN (11:47)
[2020-11-09] MEDS ORDERED: Glucagon,Human Recombinant 1 MG Vial IM PRN (12:10)
[2020-11-09] MEDS ORDERED: 50% Dextrose in Water 50 ML Syringe IV PRN (12:10)
[2020-11-09] MEDS ORDERED: Levofloxacin/Dextrose 5%-Water 750 MG in Premix Bag 1 BAG IV SCH (12:15)
[2020-11-09] MEDS ORDERED: Levofloxacin/Dextrose 5%-Water 50 ML IV ONE (12:30)
--- NOTE | 2020-11-09 12:31 | PCM.HP ---
H&P History of Present Illness - General Date of Service: 11/09/20 Admit Problem/Dx: Admission Diagnosis/Problem Admission Diagnosis/Problem COPD, Moderate chronic obstructive pulmonary Pt presents to ER with c/o worsening shortness of breath started today. Pt reports Hx of COPD. She is continuous supplemental home oxygen dependent at 2L/min. Denies chest pain, fever, or hemoptysis. Admits to generalized weakness, FARRAR, orthopnea, and mild pedal edema. ? Hx of chronic A-fib but not on anticoagulation. Pt could not verify. Pt states she has been told in the past that she may have CHF, but has not been treated for it. She had also some epigastric pain which she describes as bloating which has has off/on for lone time. pt arrived to ER with pulse ox ~70% m, improved with O2 and nebs. she was also with Afib with RVR ( chronicity is unclear). She received Diltiazem , Lasix, Levaquin, Methylpred. She was noted with WBC : 12 CXR? COPD and ?mild congestion COVID swab was neg. She has already received flu shot this season but not COVID vaccination yet. pt was admitted for COPD exacerbation and Afib with RVR. She is feeling mildly better now. - Related Data Allergies/Adverse Reactions: Allergies Allergy/AdvReac Type Severity Reaction Status Date / Time No Known Allergies Allergy Verified 11/09/20 08:51 Home Medications: Home Meds guaiFENesin [Mucinex] 600 mg PO BID tab.er 01/03/15 [Rx] Albuterol/Ipratropium [DuoNeb 3.0-0.5 MG/3 ML] 3 ml NEB QID 11/09/20 [History] Metoprolol Tartrate [Lopressor] 25 mg PO BID 11/09/20 [History] Roflumilast [Daliresp] 500 mcg PO DAILY 11/09/20 [History] Past Medical History - Past Health History Medical/Surgical History: Denies Medical/Surgical History HEENT History: Reports: Impaired Vision Cardiovascular History: Reports: Afib, Hypertension Respiratory History: Reports: COPD, SOB, Other (See Below) Other Respiratory History: Home O2 at 2L/NC Gastrointestinal History: Reports: Chronic Constipation [employer] History: Reports: Musculoskeletal History: Reports: Arthritis Psychiatric History: Reports: Anxiety Social & Family History - Family History Family Medical History: No Pertinent Family History - Tobacco Use Tobacco Use Status *Q: Former Tobacco User Used Tobacco, but Quit: Yes Month/Year Tobacco Last Used: unk - Caffeine Use Caffeine Use: Reports: None - Recreational Drug Use Recreational Drug Use: No - Living Situation & Occupation Living situation: Reports: with Family Occupation: Retired H&P Review of Systems - Review of Systems: Review Of Systems: See Below General: Denies: Fever, Chills Pulmonary: Reports: Shortness of Breath Cardiovascular: Denies: Chest Pain Gastrointestinal: Reports: Abdominal Pain (epigastic). Denies: Bloody Stool, Hematemesis, Hematochezia, Melena Genitourinary: Denies: Dysuria Psychiatric: Denies: Confusion Neurological: Denies: Confusion Hematologic/Lymphatic: Denies: Anemia Exam - Exam Exam: See Below - Vital Signs Vital Signs: Last Vital Signs Temp 98.2 F 11/09/20 10:52 Pulse 98 11/09/20 10:52 Resp 28 H 11/09/20 10:52 BP 133/97 H 11/09/20 10:52 Pulse Ox 95 11/09/20 10:52 Weight: 114 lb 12.8 oz - Exam General: Moderate Distress HEENT: Conjunctiva Clear Lungs: Decreased Breath Sounds Cardiovascular: Irregular Rhythm, Tachycardia GI/Abdominal Exam: Soft, Non-Tender (Female) Exam: Deferred Rectal (Female) Exam: Deferred Back Exam: Other (scoliosis) Extremities: Normal Inspection Neurological: Cranial Nerves Intact Neuro Extensive - Mental Status: Alert, Oriented x3 Neuro Extensive - Motor, Sensory, Reflexes: CN II-XII Intact, Normal Gait Psychiatric: Alert, Normal Affect - Patient Data Lab Results Last 24 hrs: Laboratory Results - last 24 hr 11/09/20 11/09/20 11/09/20 Range/Units 08:50 08:50 08:50 WBC 12.5 H (5.0-10.0) 10^3/uL RBC 4.96 (4.2-5.4) 10^6/uL Hgb 13.9 (12.0-16.0) g/dL Hct 43.8 (37.0-47.0) % MCV 88.3 (80-100) fL MCH 28.0 (27.0-34.0) pg MCHC 31.7 L (33.0-35.0) g/dL Plt Count 366 (150-450) 10^3/uL Neut % (Auto) 59.4 (42.2-75.2) % Lymph % (Auto) 32.3 (20.5-50.1) % Jewell % (Auto) 6.4 (2-8) % Eos % (Auto) 1.7 (1.0-3.0) % Baso % (Auto) 0.2 (0.0-1.0) % ABG pH (7.35-7.45) ABG pCO2 (35-45) mmHg ABG pO2 (70-100) mmHg ABG HCO3 (22-26) mmol/L ABG O2 Saturation (95-100) % ABG Base Excess ((-2)-(+3)) mmol/L Geremias Test O2 Delivery Device Oxygen Flow Rate Sodium 138 (136-145) mmol/L Potassium 4.5 (3.5-5.1) mmol/L Chloride 100 (98-107) mmol/L Carbon Dioxide 25 (21-32) mmol/L Anion Gap 17.5 H (7-13) mEq/L BUN 14 (7-18) mg/dL Creatinine 0.65 (0.55-1.02) mg/dL Est Cr Clr Drug Dosing TNP Estimated GFR (MDRD) > 60 BUN/Creatinine Ratio 21.5 (No establ ref range) Glucose 126 H (74-99) mg/dL Lactic Acid 2.3 H* (0.4-2.0) mmol/L Calcium 8.8 (8.5-10.1) mg/dL Magnesium (1.8-2.4) mg/dL Total Bilirubin 0.4 (0.2-1.0) mg/dL AST 18 (15-37) U/L ALT 20 (14-59) U/L Alkaline Phosphatase 105 (46-116) U/L Troponin I < 0.017 (0.000-0.056) ng/mL B-Natriuretic Peptide 423 H (0-100) pg/ml Total Protein 7.7 (6.4-8.2) g/dL Albumin 3.6 (3.4-5.0) g/dL Globulin 4.1 Albumin/Globulin Ratio 0.9 TSH, Ultra Sensitive (0.36-3.74) uIU/mL SARS-CoV-2 RNA ([place]) (NEGATIVE) 11/09/20 11/09/20 11/09/20 Range/Units 09:13 09:35 09:50 WBC (5.0-10.0) 10^3/uL RBC (4.2-5.4) 10^6/uL Hgb (12.0-16.0) g/dL Hct (37.0-47.0) % MCV (80-100) fL MCH (27.0-34.0) pg MCHC (33.0-35.0) g/dL Plt Count (150-450) 10^3/uL Neut % (Auto) (42.2-75.2) % Lymph % (Auto) (20.5-50.1) % Jewell % (Auto) (2-8) % Eos % (Auto) (1.0-3.0) % Baso % (Auto) (0.0-1.0) % ABG pH 7.26 L (7.35-7.45) ABG pCO2 60 H (35-45) mmHg ABG pO2 102 H (70-100) mmHg ABG HCO3 26.2 H (22-26) mmol/L ABG O2 Saturation 98 (95-100) % ABG Base Excess -2 ((-2)-(+3)) mmol/L Geremias Test Positive O2 Delivery Device Om Oxygen Flow Rate 7 Sodium (136-145) mmol/L Potassium (3.5-5.1) mmol/L Chloride (98-107) mmol/L Carbon Dioxide (21-32) mmol/L Anion Gap (7-13) mEq/L BUN (7-18) mg/dL Creatinine (0.55-1.02) mg/dL Est Cr Clr Drug Dosing Estimated GFR (MDRD) BUN/Creatinine Ratio (No establ ref range) Glucose (74-99) mg/dL Lactic Acid (0.4-2.0) mmol/L Calcium (8.5-10.1) mg/dL Magnesium 2.0 (1.8-2.4) mg/dL Total Bilirubin (0.2-1.0) mg/dL AST (15-37) U/L ALT (14-59) U/L Alkaline Phosphatase (46-116) U/L Troponin I (0.000-0.056) ng/mL B-Natriuretic Peptide (0-100) pg/ml Total Protein (6.4-8.2) g/dL Albumin (3.4-5.0) g/dL Globulin Albumin/Globulin Ratio TSH, Ultra Sensitive 3.61 (0.36-3.74) uIU/mL SARS-CoV-2 RNA ([place]) Negative (NEGATIVE) Result Diagrams: 11/09/20 08:50 11/09/20 08:50 Jose Eduardo Results Last 24 hrs: Microbiology 11/09/20 08:50 Anaerobic Blood Culture - Final Blood - Venous - Iv Start Problem List Initiated/Reviewed/Updated: Yes Orders Last 24hrs: Active Orders 24 hr Category Date Time Status Patient Status [ADT] Routine ADT 11/09/20 10:49 Active Blood Glucose Check, Bedside [RC] WITHMEALSANDBED Care 11/09/20 11:47 Ordered EKG Documentation Completion [RC] AM Care 11/09/20 11:47 Ordered Oxygen Therapy [RC] PRN Care 11/09/20 11:47 Ordered RT Aerosol Therapy [RC] ASDIRECTED Care 11/09/20 11:55 Ordered RT Aerosol Therapy [RC] ASDIRECTED Care 11/09/20 12:26 Ordered Up With Assistance [RC] ASDIRECTED Care 11/09/20 11:47 Ordered VTE/DVT Education [RC] PER UNIT ROUTINE Care 11/09/20 11:47 Ordered Vital Signs [RC] Q4H Care 11/09/20 11:47 Ordered Heart Healthy Diet [DIET] Diet 11/09/20 Lunch Ordered BASIC METABOLIC PANEL,BMP [CHEM] AM Lab 11/10/20 05:11 Ordered BASIC METABOLIC PANEL,BMP [CHEM] AM Lab 11/11/20 05:11 Ordered BASIC METABOLIC PANEL,BMP [CHEM] AM Lab 11/12/20 05:11 Ordered BASIC METABOLIC PANEL,BMP [CHEM] AM Lab 11/13/20 05:11 Ordered BASIC METABOLIC PANEL,BMP [CHEM] AM Lab 11/14/20 05:11 Ordered BASIC METABOLIC PANEL,BMP [CHEM] AM Lab 11/15/20 05:11 Ordered BASIC METABOLIC PANEL,BMP [CHEM] AM Lab 11/16/20 05:11 Ordered CBC WITH AUTO DIFF [HEME] AM Lab 11/10/20 05:11 Ordered CBC WITH AUTO DIFF [HEME] AM Lab 11/11/20 05:11 Ordered CBC WITH AUTO DIFF [HEME] AM Lab 11/12/20 05:11 Ordered CBC WITH AUTO DIFF [HEME] AM Lab 11/13/20 05:11 Ordered CBC WITH AUTO DIFF [HEME] AM Lab 11/14/20 05:11 Ordered CBC WITH AUTO DIFF [HEME] AM Lab 11/15/20 05:11 Ordered CBC WITH AUTO DIFF [HEME] AM Lab 11/16/20 05:11 Ordered CULTURE BLOOD [BC] Stat Lab 11/09/20 08:50 Results CULTURE BLOOD [BC] Stat Lab 11/09/20 09:13 Received MAGNESIUM [CHEM] AM Lab 11/10/20 05:11 Ordered MAGNESIUM [CHEM] AM Lab 11/11/20 05:11 Ordered MAGNESIUM [CHEM] AM Lab 11/12/20 05:11 Ordered MAGNESIUM [CHEM] AM Lab 11/13/20 05:11 Ordered MAGNESIUM [CHEM] AM Lab 11/14/20 05:11 Ordered MAGNESIUM [CHEM] AM Lab 11/15/20 05:11 Ordered MAGNESIUM [CHEM] AM Lab 11/16/20 05:11 Ordered TROPONIN I [CHEM] Routine Lab 11/09/20 15:00 Ordered Acetaminophen [TylenoL] Med 11/09/20 11:47 Ordered 650 mg PO Q4H PRN Albuterol/Ipratropium [DuoNeb 3.0-0.5 MG/3 ML] Med 11/09/20 11:47 Ordered 3 ml NEB Q4H PRN Apixaban [Eliquis] Med 11/09/20 21:00 Ordered 2.5 mg PO BID Budesonide [Pulmicort] Med 11/09/20 13:00 Ordered 0.5 mg NEB QID Dextrose 50% in Water Med 11/09/20 12:10 Ordered 50 ml IV Q15M PRN Docusate Sodium [Colace] Med 11/09/20 11:47 Ordered 100 mg PO BID PRN Glucagon,Human Recombinant [GlucaGen] Med 11/09/20 12:10 Ordered 1 mg IM Q15M PRN Insulin Lispro [HumaLOG] Med 11/09/20 18:00 Ordered See Protocol SUBCUT WITHMEALSANDBED Levofloxacin/Dextrose 5%-Water [Levaquin in D5W 750 MG/ Med 11/09/20 12:15 Ordered 150 ML] 750 mg Premix Bag 1 bag IV Q24H Metoprolol Tartrate [Lopressor] Med 11/09/20 21:00 Ordered 25 mg PO BID Sodium Chloride 0.9% [Saline Flush] Med 11/09/20 08:45 Active 10 ml FLUSH ASDIRECTED PRN bisacodyL [Dulcolax] Med 11/09/20 11:47 Ordered 5 mg PO DAILY PRN guaiFENesin [Mucinex] Med 11/09/20 21:00 Ordered 600 mg PO BID methylPREDNISolone Sod Succ [Solu-MEDROL] Med 11/09/20 12:15 Ordered 60 mg IVPUSH Q8H polyethylene glycoL 3350 [MiraLAX] Med 11/09/20 11:47 Ordered 17 gm PO DAILY PRN Blood Culture x2 Reflex Set [OM.PC] Stat Oth 11/09/20 08:45 Ordered Peripheral IV Insertion Adult [OM.PC] Stat Oth 11/09/20 08:46 Ordered Resuscitation Status Routine Resus Stat 11/09/20 11:47 Ordered Medication Orders Acetaminophen (Acetaminophen 325 Mg Tab) 650 mg PO Q4H PRN PRN Reason: Pain (Mild 1-3)/fever Albuterol/Ipratropium (Albuterol/Ipratropium 3.0-0.5 Mg/3 Ml Neb Soln) 3 ml NEB Q4H PRN PRN Reason: shortness of breath/wheezing Apixaban (Apixaban 5 Mg Tab) 2.5 mg PO BID LAMINE Bisacodyl (Bisacodyl 5 Mg Tab) 5 mg PO DAILY PRN PRN Reason: Constipation Budesonide (Budesonide 0.5 Mg/2 Ml Neb Susp) 0.5 mg NEB QID LAMINE Dextrose/Water (50% Dextrose In Water 50 Ml Syringe) 50 ml IV Q15M PRN PRN Reason: Hypoglycemia Docusate Sodium (Docusate Sodium 100 Mg Cap) 100 mg PO BID PRN PRN Reason: Constipation Glucagon (Glucagon,Human Recombinant 1 Mg Vial) 1 mg IM Q15M PRN PRN Reason: Hypoglycemia Guaifenesin (Guaifenesin 600 Mg Tab.Er) 600 mg PO BID LAMINE Levofloxacin/Dextrose 750 mg/ (Premix) 150 mls @ 100 mls/hr IV Q24H [facility] Insulin Human Lispro (Insulin Lispro 100 Units/Ml 3 Ml Vial) 0 unit SUBCUT WITHMEALSANDBED LAMINE; Protocol Methylprednisolone Sodium Succinate (Methylprednisolone Sodium Succinate 125 Mg/2 Ml Sdv) 60 mg IVPUSH Q8H LAMINE Metoprolol Tartrate (Metoprolol Tartrate 25 Mg Tab) 25 mg PO BID LAMINE Polyethylene Glycol (Polyethylene Glycol 3350 Powder 17 Gm Packet) 17 gm PO DAILY PRN PRN Reason: Constipation Sodium Chloride (Sodium Chloride 0.9% 10 Ml Syringe) 10 ml FLUSH ASDIRECTED PRN PRN Reason: Keep Vein Open Last Admin: 11/09/20 09:08 Dose: 10 ml Documented by: GREGG Assessment/Plan Comment:: Acute COPD exacerbation: Methylpred, inh steroid, Levaquin, Neb and o2. A fib with RVR: new VS old: continue with Metoprolol . I ll not start Cardizim at this point because her EF ( on echo from 2014 ) was ~ 30% CHF with ? mild exacerbation due to RVR: start Abixipan at 2.5 mg BID / Pt reports no h/o bleeding of falls. Full code as discussed with pt and her daughter.
--- NOTE | 2020-11-09 12:51 | PCM.SN.2 ---
- Free Text/Narrative Note: Apixaban to 5 mg BID as per package insert
[2020-11-09] MEDS ORDERED: methylPREDNISolone Sodium Succinate 125 MG/2 ML SDV IVPUSH SCH (13:00)
--- NOTE | 2020-11-09 13:10 | PCM.SN.2 ---
- Free Text/Narrative Note: Pt is still RVR rate 120-140 to start Cardizem drip per protocol.
[2020-11-09] MEDS ORDERED: Diltiazem 125 MG in Sodium Chloride 0.9% 125 ML IV SCH ×2 (13:15→13:30)
[2020-11-09] MEDS ORDERED: Diltiazem 125 MG in Sodium Chloride 0.9% 100 ML IV SCH (13:30)
[2020-11-09] MEDS ORDERED: LORazepam 0.5 MG Tab PO ONE (14:24)
[2020-11-09] MEDS: Budesonide 0.5 MG/2 ML Neb Susp NEB SCH ×2 (14:36→17:47)
[2020-11-09] MEDS ORDERED: Aspirin 81 MG Tab.Chew PO ONE (16:46)
--- NOTE | 2020-11-09 17:24 | PCM.DCSUM1 ---
Discharge Summary - Hospital Course Free Text/Narrative:: Pt presents to ER with c/o worsening shortness of breath started today. Pt reports Hx of COPD. She is continuous supplemental home oxygen dependent at 2L/min. Denies chest pain, fever, or hemoptysis. Admits to generalized weakness, FARRAR, orthopnea, and mild pedal edema. ? Hx of chronic A-fib but not on anticoagulation. Pt could not verify. Pt states she has been told in the past that she may have CHF, but has not been treated for it. She had also some epigastric pain which she describes as bloating. She reports having this before Pt arrived to ER with pulse ox ~70% m, improved with O2 and nebs. She was also noted with A fib with RVR (chronicity is unclear). She received Diltiazem, Lasix, Levaquin, Methylpred. She was noted with WBC: 12 CXR? COPD and?mild congestion COVID swab was neg. She has already received flu shot this season but not COVID vaccination yet. pt was admitted for COPD exacerbation and Afib with RVR and to [facility]. Acute COPD exacerbation: Methylpred, inh steroid, Levaquin, Neb and o2. A fib with RVR: new VS old: continue with Metoprolol. started on Cardizem as per protocol. Her HR is 90-110 EF (on echo from 2014 ) was ~ 30%. SHe was planned for repeat in AM CHF with? Mild exacerbation due to RVR: start Apixaban at 2.5 mg BID / Pt reports no h/o bleeding of falls. Non STEMI: Her repeat Trop was 1.09. She still with epigastic pain and she remains anxious in spite of Ativan. repeat EKG: Afib with rate 79. LVH. non specific changes. Aspirin and Protonex was added. Full code as discussed earlier with pt and her daughter. Discussed with pt and her son she would like to be transferred to be evaluated by cardiology. - Discharge Data Discharge Date: 11/09/20 Discharge Disposition: DC/Tfer to Acute Hospital 02 Condition: Fair - Referral to Home Health Date of Face to Face Encounter: 11/09/20 Primary Care Physician: PCP Unobtainable - Discharge Plan *PRESCRIPTION DRUG MONITORING PROGRAM REVIEWED*: Not Applicable *COPY OF PRESCRIPTION DRUG MONITORING REPORT IN PATIENT AMANDO: Not Applicable Home Medications: Home Meds guaiFENesin [Mucinex] 600 mg PO BID tab.er 01/03/15 [Rx] Acetaminophen [Tylenol] 650 mg PO Q4H PRN tablet 11/09/20 [Rx] Albuterol/Ipratropium [DuoNeb 3.0-0.5 MG/3 ML] 3 ml NEB Q4H PRN neb 11/09/20 [Rx] Albuterol/Ipratropium [DuoNeb 3.0-0.5 MG/3 ML] 3 ml NEB QID 11/09/20 [History] Apixaban [Eliquis] 5 mg PO BID tablet 11/09/20 [Rx] Budesonide [Pulmicort] 0.5 mg NEB QIDRT neb 11/09/20 [Rx] Dextrose 50% in Water [Dextrose 50%-Water] 50 ml IV Q15M PRN syringe 11/09/20 [Rx] Diltiazem 125 mg IV TITRATE sdv 11/09/20 [Rx] Docusate Sodium [Colace] 100 mg PO BID PRN cap 11/09/20 [Rx] Glucagon,Human Recombinant [Glucagen] 1 mg IM Q15M PRN vial 11/09/20 [Rx] Insulin Lispro [HumaLOG] 0 unit SUBCUT WITHMEALSANDBED vial 11/09/20 [Rx] Metoprolol Tartrate [Lopressor] 25 mg PO BID 11/09/20 [History] bisacodyL [Dulcolax] 5 mg PO DAILY PRN tablet 11/09/20 [Rx] methylPREDNISolone Sod Succ [Solu-MEDROL] 60 mg IVPUSH Q8H sdv 11/09/20 [Rx] polyethylene glycoL 3350 [MiraLAX] 17 gm PO DAILY PRN packet 11/09/20 [Rx] Oxygen Therapy Mode: Nasal Cannula Oxygen Flow Rate (L/min): 2 Forms: ED Department Discharge - Discharge Summary/Plan Comment DC Time >30 min.: Yes (exam, transfer arrangement and DC summary) - Review of Systems Pulmonary: Reports: Shortness of Breath Cardiovascular: Denies: Chest Pain Gastrointestinal: Reports: Abdominal Pain Skin: Denies: Cyanosis Neurological: Denies: Confusion Psychiatric: Reports: Anxiety - Patient Data Vitals - Most Recent: Last Vital Signs Temp 98.2 F 11/09/20 10:52 Pulse 130 H 04/04/21 16:00 Resp 34 H 11/09/20 16:00 BP 120/74 11/09/20 16:00 Pulse Ox 94 L 11/09/20 16:00 Weight - Most Recent: 114 lb 12.8 oz I&O - Last 24 hours: Intake & Output 11/09/20 11/09/20 11/09/20 06:59 14:59 22:59 Intake Total 200 Balance 200 Lab Results - Last 24 hrs: Laboratory Results - last 24 hr 11/09/20 11/09/20 11/09/20 Range/Units 08:50 08:50 08:50 WBC 12.5 H (5.0-10.0) 10^3/uL RBC 4.96 (4.2-5.4) 10^6/uL Hgb 13.9 (12.0-16.0) g/dL Hct 43.8 (37.0-47.0) % MCV 88.3 (80-100) fL MCH 28.0 (27.0-34.0) pg MCHC 31.7 L (33.0-35.0) g/dL Plt Count 366 (150-450) 10^3/uL Neut % (Auto) 59.4 (42.2-75.2) % Lymph % (Auto) 32.3 (20.5-50.1) % [place] % (Auto) 6.4 (2-8) % Eos % (Auto) 1.7 (1.0-3.0) % Baso % (Auto) 0.2 (0.0-1.0) % ABG pH (7.35-7.45) ABG pCO2 (35-45) mmHg ABG pO2 (70-100) mmHg ABG HCO3 (22-26) mmol/L ABG O2 Saturation (95-100) % ABG Base Excess ((-2)-(+3)) mmol/L Geremias Test O2 Delivery Device Oxygen Flow Rate Sodium 138 (136-145) mmol/L Potassium 4.5 (3.5-5.1) mmol/L Chloride 100 (98-107) mmol/L Carbon Dioxide 25 (21-32) mmol/L Anion Gap 17.5 H (7-13) mEq/L BUN 14 (7-18) mg/dL Creatinine 0.65 (0.55-1.02) mg/dL Est Cr Clr Drug Dosing TNP Estimated GFR (MDRD) > 60 BUN/Creatinine Ratio 21.5 (No establ ref range) Glucose 126 H (74-99) mg/dL Lactic Acid 2.3 H* (0.4-2.0) mmol/L Calcium 8.8 (8.5-10.1) mg/dL Magnesium (1.8-2.4) mg/dL Total Bilirubin 0.4 (0.2-1.0) mg/dL AST 18 (15-37) U/L ALT 20 (14-59) U/L Alkaline Phosphatase 105 (46-116) U/L Troponin I < 0.017 (0.000-0.056) ng/mL B-Natriuretic Peptide 423 H (0-100) pg/ml Total Protein 7.7 (6.4-8.2) g/dL Albumin 3.6 (3.4-5.0) g/dL Globulin 4.1 Albumin/Globulin Ratio 0.9 TSH, Ultra Sensitive (0.36-3.74) uIU/mL SARS-CoV-2 RNA (PAULINA) (NEGATIVE) 11/09/20 11/09/20 11/09/20 Range/Units 09:13 09:35 09:50 WBC (5.0-10.0) 10^3/uL RBC (4.2-5.4) 10^6/uL Hgb (12.0-16.0) g/dL Hct (37.0-47.0) % MCV (80-100) fL MCH (27.0-34.0) pg MCHC (33.0-35.0) g/dL Plt Count (150-450) 10^3/uL Neut % (Auto) (42.2-75.2) % Lymph % (Auto) (20.5-50.1) % [place] % (Auto) (2-8) % Eos % (Auto) (1.0-3.0) % Baso % (Auto) (0.0-1.0) % ABG pH 7.26 L (7.35-7.45) ABG pCO2 60 H (35-45) mmHg ABG pO2 102 H (70-100) mmHg ABG HCO3 26.2 H (22-26) mmol/L ABG O2 Saturation 98 (95-100) % ABG Base Excess -2 ((-2)-(+3)) mmol/L Geremias Test Positive O2 Delivery Device Om Oxygen Flow Rate 7 Sodium (136-145) mmol/L Potassium (3.5-5.1) mmol/L Chloride (98-107) mmol/L Carbon Dioxide (21-32) mmol/L Anion Gap (7-13) mEq/L BUN (7-18) mg/dL Creatinine (0.55-1.02) mg/dL Est Cr Clr Drug Dosing Estimated GFR (MDRD) BUN/Creatinine Ratio (No establ ref range) Glucose (74-99) mg/dL Lactic Acid (0.4-2.0) mmol/L Calcium (8.5-10.1) mg/dL Magnesium 2.0 (1.8-2.4) mg/dL Total Bilirubin (0.2-1.0) mg/dL AST (15-37) U/L ALT (14-59) U/L Alkaline Phosphatase (46-116) U/L Troponin I (0.000-0.056) ng/mL B-Natriuretic Peptide (0-100) pg/ml Total Protein (6.4-8.2) g/dL Albumin (3.4-5.0) g/dL Globulin Albumin/Globulin Ratio TSH, Ultra Sensitive 3.61 (0.36-3.74) uIU/mL SARS-CoV-2 RNA (PAULINA) Negative (NEGATIVE) 11/09/20 Range/Units 15:36 WBC (5.0-10.0) 10^3/uL RBC (4.2-5.4) 10^6/uL Hgb (12.0-16.0) g/dL Hct (37.0-47.0) % MCV (80-100) fL MCH (27.0-34.0) pg MCHC (33.0-35.0) g/dL Plt Count (150-450) 10^3/uL Neut % (Auto) (42.2-75.2) % Lymph % (Auto) (20.5-50.1) % [place] % (Auto) (2-8) % Eos % (Auto) (1.0-3.0) % Baso % (Auto) (0.0-1.0) % ABG pH (7.35-7.45) ABG pCO2 (35-45) mmHg ABG pO2 (70-100) mmHg ABG HCO3 (22-26) mmol/L ABG O2 Saturation (95-100) % ABG Base Excess ((-2)-(+3)) mmol/L Geremias Test O2 Delivery Device Oxygen Flow Rate Sodium (136-145) mmol/L Potassium (3.5-5.1) mmol/L Chloride (98-107) mmol/L Carbon Dioxide (21-32) mmol/L Anion Gap (7-13) mEq/L BUN (7-18) mg/dL Creatinine (0.55-1.02) mg/dL Est Cr Clr Drug Dosing Estimated GFR (MDRD) BUN/Creatinine Ratio (No establ ref range) Glucose (74-99) mg/dL Lactic Acid (0.4-2.0) mmol/L Calcium (8.5-10.1) mg/dL Magnesium (1.8-2.4) mg/dL Total Bilirubin (0.2-1.0) mg/dL AST (15-37) U/L ALT (14-59) U/L Alkaline Phosphatase (46-116) U/L Troponin I 1.193 H* (0.000-0.056) ng/mL B-Natriuretic Peptide (0-100) pg/ml Total Protein (6.4-8.2) g/dL Albumin (3.4-5.0) g/dL Globulin Albumin/Globulin Ratio TSH, Ultra Sensitive (0.36-3.74) uIU/mL SARS-CoV-2 RNA (PAULINA) (NEGATIVE) GIANCARLO Results - Last 24 hrs: Microbiology 11/09/20 08:50 Anaerobic Blood Culture - Final Blood - Venous - Iv Start Med Orders - Current: Current Medications Acetaminophen (Acetaminophen 325 Mg Tab) 650 mg PO Q4H PRN PRN Reason: Pain (Mild 1-3)/fever Albuterol/Ipratropium (Albuterol/Ipratropium 3.0-0.5 Mg/3 Ml Neb Soln) 3 ml NEB Q4H PRN PRN Reason: shortness of breath/wheezing Apixaban (Apixaban 5 Mg Tab) 5 mg PO BID LAMINE Bisacodyl (Bisacodyl 5 Mg Tab) 5 mg PO DAILY PRN PRN Reason: Constipation Budesonide (Budesonide 0.5 Mg/2 Ml Neb Susp) 0.5 mg NEB QIDRT ON LICENSE OF [facility] Last Admin: 11/09/20 14:36 Dose: 0.5 mg Documented by: Dextrose/Water (50% Dextrose In Water 50 Ml Syringe) 50 ml IV Q15M PRN PRN Reason: Hypoglycemia Docusate Sodium (Docusate Sodium 100 Mg Cap) 100 mg PO BID PRN PRN Reason: Constipation Glucagon (Glucagon,Human Recombinant 1 Mg Vial) 1 mg IM Q15M PRN PRN Reason: Hypoglycemia Guaifenesin (Guaifenesin 600 Mg Tab.Er) 600 mg PO BID LAMINE Levofloxacin/Dextrose (Levaquin In D5w 750 Mg/150 Ml) 150 mls @ 100 mls/hr IV Q48H ON LICENSE OF [facility] Diltiazem HCl 125 mg/ Sodium (Chloride) 150 mls @ 5 mls/hr IV TITRATE ON LICENSE OF [facility]; Protocol Last Infusion: 11/09/20 16:01 Dose: 15 mls/hr Documented by: Insulin Human Lispro (Insulin Lispro 100 Units/Ml 3 Ml Vial) 0 unit SUBCUT WITHMEALSANDBED ON LICENSE OF [facility]; Protocol Methylprednisolone Sodium Succinate (Methylprednisolone Sodium Succinate 125 Mg/2 Ml Sdv) 60 mg IVPUSH Q8H ON LICENSE OF [facility] Last Admin: 11/09/20 13:03 Dose: 60 mg Documented by: Metoprolol Tartrate (Metoprolol Tartrate 25 Mg Tab) 25 mg PO BID ON LICENSE OF [facility] Polyethylene Glycol (Polyethylene Glycol 3350 Powder 17 Gm Packet) 17 gm PO DAILY PRN PRN Reason: Constipation Sodium Chloride (Sodium Chloride 0.9% 10 Ml Syringe) 10 ml FLUSH ASDIRECTED PRN PRN Reason: Keep Vein Open Last Admin: 11/09/20 09:08 Dose: 10 ml Documented by: Discontinued Medications Albuterol/Ipratropium (Albuterol/Ipratropium 3.0-0.5 Mg/3 Ml Neb Soln) 3 ml NEB ONETIME ONE Stop: 11/09/20 08:46 Last Admin: 11/09/20 09:08 Dose: 3 ml Documented by: Apixaban (Apixaban 5 Mg Tab) 2.5 mg PO BID ON LICENSE OF [facility] Aspirin (Aspirin 81 Mg Tab.Chew) 324 mg PO ONETIME ONE Stop: 11/09/20 16:47 Last Admin: 11/09/20 16:57 Dose: 324 mg Documented by: Diltiazem HCl (Diltiazem 25 Mg/5 Ml Sdv) 20 mg IVPUSH ONETIME ONE Stop: 11/09/20 09:38 Last Admin: 11/09/20 09:56 Dose: 20 mg Documented by: Diltiazem HCl (Diltiazem 25 Mg/5 Ml Sdv) 5 mg IVPUSH ONETIME ONE Stop: 11/09/20 14:40 Last Admin: 11/09/20 14:50 Dose: 5 mg Documented by: Diltiazem HCl (Diltiazem 25 Mg/5 Ml Sdv) 5 mg IVPUSH ONETIME ONE Stop: 11/09/20 15:52 Last Admin: 11/09/20 15:59 Dose: 5 mg Documented by: Furosemide (Furosemide 40 Mg/4 Ml Vial) 40 mg IVPUSH NOW ONE Stop: 11/09/20 09:32 Last Admin: 11/09/20 09:56 Dose: 40 mg Documented by: Levofloxacin/Dextrose 500 mg/ (Premix) 100 mls @ 100 mls/hr IV ONETIME ONE Stop: 11/09/20 10:30 Last Admin: 11/09/20 09:56 Dose: 100 mls/hr Documented by: Levofloxacin/Dextrose 750 mg/ (Premix) 150 mls @ 100 mls/hr IV Q24H LAMINE Levofloxacin/Dextrose (Levaquin In D5w 250 Mg/50 Ml) 50 mls @ 50 mls/hr IV ONETIME ONE Stop: 11/09/20 13:29 Last Admin: 11/09/20 13:03 Dose: 50 mls/hr Documented by: Diltiazem HCl 125 mg/ Sodium (Chloride) 150 mls @ 5 mls/hr IV ASDIRECTED LAMINE; Protocol Diltiazem HCl 125 mg/ Sodium (Chloride) 125 mls @ 5 mls/hr IV TITRATE LAMINE; Protocol Lorazepam (Lorazepam 0.5 Mg Tab) 0.5 mg PO ONETIME ONE Stop: 11/09/20 14:25 Last Admin: 11/09/20 14:36 Dose: 0.5 mg Documented by: Methylprednisolone Sodium Succinate (Methylprednisolone Sodium Succinate 125 Mg/2 Ml Sdv) 125 mg IVPUSH ONETIME ONE Stop: 11/09/20 08:47 Last Admin: 11/09/20 09:08 Dose: 125 mg Documented by: - Exam General: Reports: Moderate Distress Lungs: Reports: Decreased Breath Sounds Cardiovascular: Reports: Irregular Rhythm GI/Abdominal Exam: Soft Rectal (Female) Exam: Deferred Skin: Reports: Intact Neurological: Reports: No New Focal Deficit Psy/Mental Status: Reports: Normal Affect
[2020-11-09] MEDS ORDERED: Pantoprazole 40 MG in Sodium Chloride 0.9% 100 ML IV SCH (17:30)
[2020-11-09] MEDS ORDERED: Pantoprazole 40 MG Vial IVPUSH ONE (17:45)
[2020-11-09] MEDS ORDERED: Insulin Lispro 100 Units/ML 3 ML Vial SUBCUT SCH (18:00)
[2020-11-09 19:38] VITALS: BP 105/62; PULSE 87
[2020-11-09] MEDS ORDERED: Apixaban 5 MG Tab PO SCH ×2 (21:00)
[2020-11-09] MEDS ORDERED: guaiFENesin 600 MG Tab.ER PO SCH (21:00)
[2020-11-09] MEDS ORDERED: Metoprolol Tartrate 25 MG Tab PO SCH (21:00)
[2020-11-11] MEDS ORDERED: Levofloxacin/Dextrose 5%-Water 150 ML IV SCH (10:00)
== END 2020-11-09 19:56 | DRG 190 ==
LOC: DL.ED 08:42 → DL.MS 10:49
PROVIDERS: ADMIT Internal Medicine; ATTEND Internal Medicine
DX: J44.1 Chronic obstructive pulmonary disease with (acute) exacerbation (principal); I48.91 Unspecified atrial fibrillation; R09.02 Hypoxemia; I21.4 Non-ST elevation (NSTEMI) myocardial infarction; I10 Essential (primary) hypertension; I48.20 Chronic atrial fibrillation, unspecified; I11.0 Hypertensive heart disease with heart failure; I50.9 Heart failure, unspecified; H54.7 Unspecified visual loss; K59.09 Other constipation; M19.90 Unspecified osteoarthritis, unspecified site; F41.9 Anxiety disorder, unspecified; Z20.822 Contact with and (suspected) exposure to COVID-19; Z79.52 Long term (current) use of systemic steroids; Z79.899 Other long term (current) drug therapy; Z87.891 Personal history of nicotine dependence; Z99.81 Dependence on supplemental oxygen; Z79.4 Long term (current) use of insulin
CPT/HCPCS: 36415; 36600; 71045; 80053; 82803; 83605; 83735; 83880; 84443; 84484; 85025; 87040 ×2; 93005; 94640; J1940; J1956; J2930; J3490; U0002; 82962; 93010; 96365; 96375; 99284; 99285-25; A9270-GY; C9113; J1815-GY; J7620-GY

== ENCOUNTER 2020-12-02 11:06 | Emergency (ER) | payer MEDICARE, OTHER ==
[2020-12-02 11:47] VITALS: BP 126/72; PULSE 66
--- NOTE | 2020-12-02 11:53 | CR ---
EXAMINATION: Chest 1V Frontal SEX: Female AGE: 70 years CLINICAL HISTORY: 70-year-old female with chest pain. CHF demonstrated on 09 November 2020 film. Reevaluate please. Interpretation: (Rotational artifact) 1. Dorsolumbar scoliosis. 2. Normal cardiac silhouette. No pulmonary vascular congestion. No alveolar edema or dependent pleural effusion. 3. No new signs of lung mass or hilar lymphadenopathy (chronic apical pleural scarring). 4. No new focal lobar consolidation (alveolar or interstitial infiltrates). 5. No atelectasis or collapse. 6. No pneumothorax or pneumomediastinum. CONCLUSION: No acute cardiopulmonary abnormality. Specifically, no residual evidence of "CHF" demonstrated on 09 November 2020 exam.
[2020-12-02 12:11] LABS: ANION GAP 9.6 mEq/L (7-13); CHLORIDE,CL 93 mmol/L (98-107); SODIUM,NA 132 mmol/L (136-145)
--- NOTE | 2020-12-02 12:35 | EDM.PDOC ---
ED HPI GENERAL MEDICAL PROBLEM - General Stated Complaint: CHEST PAIN/RIGHT SIDE Time Seen by Provider: 12/02/20 12:05 Source of Information: Reports: Patient, Old Records, RN, RN Notes Reviewed History Limitations: Reports: No Limitations - History of Present Illness INITIAL COMMENTS - FREE TEXT/NARRATIVE: Patient is a 70 y/o female presents to the ED via personal vehicle for transient chest pain that began two days ago. The patient reports a history of COPD, CHF, and A Fib for which she takes Eliquis. The patient was hospitalized earlier this month for new onset atrial fibrillation for which she was started on amiodarone. She has an appointment on December 16 for a pacemaker insertion via cardiology at [facility] in [place]. The patient characterizes her transient chest pain as sharp in nature, and notes it is localized to her right lower breastbone. She states the pain occurs occasionally when she coughs, belches, or takes a deep breath. She denies fever, shaking chills, sore throat, palp itations, shortness of breath, epigastric pain, nausea, vomiting, or diarrhea. She attests to a chronic productive cough which she feels has improved since her admission on [facility]. The patient denies alcohol or recreational drug use, but reports history of smoking with a quit date "...several years ago." Chest Pain Score (Numeric/FACES): 6 - Related Data Allergies Allergy/AdvReac Type Severity Reaction Status Date / Time No Known Allergies Allergy Verified 12/02/20 11:47 Home Meds: Home Meds guaiFENesin [Mucinex] 600 mg PO BID tab.er 01/03/15 [Rx] Albuterol/Ipratropium [DuoNeb 3.0-0.5 MG/3 ML] 3 ml NEB QID 11/09/20 [History] Apixaban [Eliquis] 5 mg PO BID tablet 11/09/20 [Rx] bisacodyL [Dulcolax] 5 mg PO DAILY PRN tablet 11/09/20 [Rx] polyethylene glycoL 3350 [MiraLAX] 17 gm PO DAILY PRN packet 11/09/20 [Rx] Furosemide 40 mg PO 12/02/20 [History] Incurse Ellipta 62.5 mcg IH ASDIRECTED 12/02/20 [History] Pantoprazole [ProTONIX] 40 mg PO DAILY 12/02/20 [History] Potassium Chloride 10 meq PO TID 12/02/20 [History] Roflumilast [Daliresp] 500 mg PO DAILY 12/02/20 [History] Past Medical History - Past Health History Medical/Surgical History: Denies Medical/Surgical History HEENT History: Reports: Impaired Vision Cardiovascular History: Reports: Afib, Hypertension Respiratory History: Reports: COPD, SOB, Other (See Below) Other Respiratory History: Home O2 at 2L/NC Gastrointestinal History: Reports: Chronic Constipation [employer] History: Reports: Musculoskeletal History: Reports: Arthritis Psychiatric History: Reports: Anxiety Social & Family History - Family History Family Medical History: No Pertinent Family History - Tobacco Use Tobacco Use Status *Q: Unknown Ever Used Tobacco - Caffeine Use Caffeine Use: Reports: Coffee - Recreational Drug Use Recreational Drug Use: No - Living Situation & Occupation Living situation: Reports: with Family Occupation: Retired ED ROS GENERAL - Review of Systems Review Of Systems: Comprehensive ROS is negative, except as noted in HPI. ED EXAM, GENERAL - Physical Exam Exam: See Below Exam Limited By: No Limitations General Appearance: Alert, No Apparent Distress Eye Exam: Bilateral Eye: EOMI, Normal Inspection, PERRL (3m) Ears: Normal External Exam, Normal Canal, Hearing Grossly Normal, Normal TMs Ear Exam: Bilateral Ear: Auricle Normal, Canal Normal, TM normal Nose: Normal Inspection, Normal Mucosa, No Blood Throat/Mouth: Normal Inspection, Normal Voice, No Airway Compromise Head: Atraumatic, Normocephalic Neck: Normal Inspection, Supple, Non-Tender, Full Range of Motion Respiratory/Chest: No Respiratory Distress, Lungs Clear, No Accessory Muscle Use, Chest Non-Tender, Decreased Breath Sounds Cardiovascular: No Gallop, No JVD, No Murmur, No Rub, Irregularly Irregular. No: No Edema Peripheral Pulses: 1+: Radial (L), Radial (R) GI/Abdominal: Normal Bowel Sounds, Soft, Non-Tender, No Distention, No Mass, Pelvis Stable (Female) Exam: Deferred Rectal (Female) Exam: Deferred Back Exam: Full Range of Motion, Other (Kiphosis). No: Paraspinal Tenderness, Vertebral Tenderness Extremities: Normal Capillary Refill, Pedal Edema (+1 pitting, bilaterally) Neurological: Alert, Oriented, CN II-XII Intact, Normal Cognition, No Motor/Sensory Deficits Psychiatric: Normal Affect, Normal Mood Skin Exam: Warm, Dry, Intact, Normal Color, No Rash. No: Ecchymosis, Erythema, Jaundice, Mottled, Pallor, Petechiae #1 Interpretation EKG Date: 12/02/20 Time: 11:52 Rhythm: A-Fib Rate (Beats/Min): 69 [place]: Normal P-Wave: Absent QRS: Normal ST-T: Normal QT: Normal NV/PQ Interval: Absent Comparison: No Change EKG Interpretation Comments: AFib; No evidence of acute myocardial ischemia Course - Vital Signs Last Recorded V/S: Last Vital Signs Temp 98.5 F 12/02/20 11:41 Pulse 66 12/02/20 11:41 Resp 14 12/02/20 11:41 BP 126/72 12/02/20 11:41 Pulse Ox 99 12/02/20 11:41 - Orders/Labs/Meds Labs: Laboratory Tests 12/02/20 12/02/20 12/02/20 Range/Units 11:34 11:34 11:34 WBC 7.6 (5.0-10.0) 10^3/uL RBC 4.64 (4.2-5.4) 10^6/uL Hgb 13.5 (12.0-16.0) g/dL Hct 40.1 (37.0-47.0) % MCV 86.4 (80-100) fL MCH 29.1 (27.0-34.0) pg MCHC 33.7 (33.0-35.0) g/dL Plt Count 314 (150-450) 10^3/uL Neut % (Auto) 77.0 H (42.2-75.2) % Lymph % (Auto) 12.8 L (20.5-50.1) % [place] % (Auto) 8.2 H (2-8) % Eos % (Auto) 1.3 (1.0-3.0) % Baso % (Auto) 0.7 (0.0-1.0) % Sodium 132 L (136-145) mmol/L Potassium 3.6 (3.5-5.1) mmol/L Chloride 93 L (98-107) mmol/L Carbon Dioxide 33 H (21-32) mmol/L Anion Gap 9.6 (7-13) mEq/L BUN 7 (7-18) mg/dL Creatinine 0.57 (0.55-1.02) mg/dL Est Cr Clr Drug Dosing 64.08 mL/min Estimated GFR (MDRD) > 60 BUN/Creatinine Ratio 12.3 (No establ ref range) Glucose 79 (70-99) mg/dL Lactic Acid 1.2 (0.4-2.0) mmol/L Calcium 8.2 L (8.5-10.1) mg/dL Total Bilirubin 0.6 (0.2-1.0) mg/dL AST 20 (15-37) U/L ALT 21 (14-59) U/L Alkaline Phosphatase 93 (46-116) U/L Troponin I < 0.017 (0.000-0.056) ng/mL C-Reactive Protein 0.3 (0.0-0.9) mg/dL B-Natriuretic Peptide 310 H (0-100) pg/ml Total Protein 6.9 (6.4-8.2) g/dL Albumin 2.9 L (3.4-5.0) g/dL Globulin 4.0 Albumin/Globulin Ratio 0.73 Urine Color (YELLOW) Urine Appearance (CLEAR) Urine pH (5.0-9.0) Ur Specific [place] (1.005-1.030) Urine Protein (NEGATIVE) Urine Glucose (UA) (NEGATIVE) Urine Ketones (NEGATIVE) Urine Occult Blood (NEGATIVE) Urine Nitrite (NEGATIVE) Urine Bilirubin (NEGATIVE) Urine Urobilinogen (0.2-1.0) mg/dL Ur Leukocyte Esterase (NEGATIVE) SARS-CoV-2 RNA (PAULINA) (NEGATIVE) 12/02/20 12/02/20 Range/Units 12:08 12:25 WBC (5.0-10.0) 10^3/uL RBC (4.2-5.4) 10^6/uL Hgb (12.0-16.0) g/dL Hct (37.0-47.0) % MCV (80-100) fL MCH (27.0-34.0) pg MCHC (33.0-35.0) g/dL Plt Count (150-450) 10^3/uL Neut % (Auto) (42.2-75.2) % Lymph % (Auto) (20.5-50.1) % [place] % (Auto) (2-8) % Eos % (Auto) (1.0-3.0) % Baso % (Auto) (0.0-1.0) % Sodium (136-145) mmol/L Potassium (3.5-5.1) mmol/L Chloride (98-107) mmol/L Carbon Dioxide (21-32) mmol/L Anion Gap (7-13) mEq/L BUN (7-18) mg/dL Creatinine (0.55-1.02) mg/dL Est Cr Clr Drug Dosing mL/min Estimated GFR (MDRD) BUN/Creatinine Ratio (No establ ref range) Glucose (70-99) mg/dL Lactic Acid (0.4-2.0) mmol/L Calcium (8.5-10.1) mg/dL Total Bilirubin (0.2-1.0) mg/dL AST (15-37) U/L ALT (14-59) U/L Alkaline Phosphatase (46-116) U/L Troponin I (0.000-0.056) ng/mL C-Reactive Protein (0.0-0.9) mg/dL B-Natriuretic Peptide (0-100) pg/ml Total Protein (6.4-8.2) g/dL Albumin (3.4-5.0) g/dL Globulin Albumin/Globulin Ratio Urine Color Yellow (YELLOW) Urine Appearance Clear (CLEAR) Urine pH 7.5 (5.0-9.0) Ur Specific [place] 1.020 (1.005-1.030) Urine Protein Negative (NEGATIVE) Urine Glucose (UA) Negative (NEGATIVE) Urine Ketones Negative (NEGATIVE) Urine Occult Blood Negative (NEGATIVE) Urine Nitrite Negative (NEGATIVE) Urine Bilirubin Negative (NEGATIVE) Urine Urobilinogen 0.2 (0.2-1.0) mg/dL Ur Leukocyte Esterase Negative (NEGATIVE) SARS-CoV-2 RNA (PAULINA) Negative (NEGATIVE) - Re-Assessments/Exams Free Text/Narrative Re-Assessment/Exam: 12/02/20 EKG reveals AFib; no evidence of acute myocardial ischemia. Troponin WNL. CXR unremarkable for acute processes; evidence of CHF noted on 11/09/20 improved in comparison. Given length of chest pain in the presence of normal cardiac enzyme and known AFib, patient has essentially r/o cardiac ischemia as cause for chest pain. CBC unremarkable for acute processes; no evidence of infection or anemia. Kidney function and liver function appropriate via CMP; sodium low at 132. BNP 310 which is slightly elevated from patients baseline. UA unremarkable. COVID negative. Findings of examination, lab work, and imaging reviewed with patient and daughter. Will treat acute fluid overload with extra AM dose of Lasix. Patient instructed to follow up with primary care in 1-2 days. Red flag signs and symptoms which would warrant reevaluation reviewed. Patient and daughter verbalized understanding and agreement with the plan of care. Departure - Departure Time of Disposition: 13:15 Disposition: Home, Self-Care 01 Condition: Good Clinical Impression: Pleurisy without effusion, History of COPD, History of CHF (congestive heart failure) Atrial fibrillation Qualifiers: Atrial fibrillation type: unspecified Qualified Code(s): I48.91 - Unspecified atrial fibrillation Fluid overload Qualifiers: Hypervolemia type: unspecified Qualified Code(s): E87.70 - Fluid overload, unspecified Instructions: Pleurisy, [id number] Referrals: PCP,Unobtain [Primary Care Provider] - Forms: ED Department Discharge Additional Instructions: Rx: furosemide 1.) Continue on your previously prescribed medications. 2.) Take extra furosemide 20mg tablet in the morning. 3.) Follow up with your primary care provider in two to three days regarding today's visit. 4.) Keep your previously scheduled cardiology appointments. 5.) Return to the emergency department with any chest pain that does not stop, shortness of breath, or fever. Sepsis Event Note (ED) - Evaluation Sepsis Screening Result: No Definite Risk
== END 2020-12-02 13:53 | disposition home or self-care (01) ==
LOC: DL.ED 11:06
DX: R09.1 Pleurisy (principal); E87.70 Fluid overload, unspecified; I48.91 Unspecified atrial fibrillation; I11.0 Hypertensive heart disease with heart failure; I50.9 Heart failure, unspecified; J44.9 Chronic obstructive pulmonary disease, unspecified; Z79.01 Long term (current) use of anticoagulants; Z79.899 Other long term (current) drug therapy; Z20.822 Contact with and (suspected) exposure to COVID-19
CPT/HCPCS: 36415; 71045; 80053; 81003; 83605; 83880; 84484; 85025; 86140; 93005; 93010; 99283; 99285-25; U0002

== ENCOUNTER 2021-07-09 14:16 | Emergency (ER) | payer MEDICARE, SELFPAY ==
[2021-07-09] MEDS ORDERED: Sodium Chloride 0.9% 10 ML Syringe FLUSH PRN (14:42)
[2021-07-09 14:55] VITALS: BP 123/68; PULSE 76
[2021-07-09 15:32] LABS: ANION GAP 11.8 mEq/L (7-13); CHLORIDE,CL 85 mmol/L (98-107); SODIUM,NA 125 mmol/L (136-145)
[2021-07-09] MEDS ORDERED: Sodium Chloride 0.9% 1,000 ML IV ONE (15:44)
[2021-07-09] MEDS ORDERED: Sodium Chloride 0.9% 500 ML IV SCH (16:00)
--- NOTE | 2021-07-09 16:28 | EDM.PDOC ---
ED HPI GENERAL MEDICAL PROBLEM - General Chief Complaint: Respiratory Problem Stated Complaint: COVID POSITIVE Time Seen by Provider: 07/09/21 15:00 Source of Information: Reports: Patient History Limitations: Reports: No Limitations - History of Present Illness INITIAL COMMENTS - FREE TEXT/NARRATIVE: 71 y/o F c/o increased sob with exertion and increased cough since Tuesday. Pt was seen at the clinic and daignosed with COVID. She was placed on steroids and azithromycin which she has been taking. Hx of COPD and is on O2 at home 2L nsl cannula. She went to the clinic today for her increased SOB adn her provider sent her over here stating her sats were at 88% on 2L and pt was in resp distress. She denies being in resp distress but states she has had a more productive cough and is coughing up green sputum. She denies fever, cough, chills, cp, abd pn, NVD, ext pain. - Related Data Allergies Allergy/AdvReac Type Severity Reaction Status Date / Time No Known Allergies Allergy Verified 07/09/21 14:55 Home Meds: Home Meds guaiFENesin [Mucinex] 600 mg PO BID tab.er 01/03/15 [Rx] Albuterol/Ipratropium [DuoNeb 3.0-0.5 MG/3 ML] 3 ml NEB QID 11/09/20 [History] Apixaban [Eliquis] 5 mg PO BID tablet 11/09/20 [Rx] bisacodyL [Dulcolax] 5 mg PO DAILY PRN tablet 11/09/20 [Rx] polyethylene glycoL 3350 [MiraLAX] 17 gm PO DAILY PRN packet 11/09/20 [Rx] Incurse Ellipta 62.5 mcg IH DAILY 12/02/20 [History] Pantoprazole [ProTONIX] 40 mg PO DAILY 12/02/20 [History] Roflumilast [Daliresp] 500 mg PO DAILY 12/02/20 [History] Furosemide 40 mg PO DAILY 03/12/21 [History] Metoprolol Tartrate 25 mg PO BID 03/12/21 [History] Potassium Chloride 20 meq PO TID 03/12/21 [History] Ascorbate Calcium [Vitamin C] 500 mg PO DAILY 30 Days #30 tablet 03/14/21 [Rx] Doxycycline Monohydrate 100 mg PO BID 5 Days #10 cap 03/14/21 [Rx] Ferrous Sulfate 325 mg PO BID 30 Days #60 tablet 03/14/21 [Rx] Pantoprazole [ProTONIX] 40 mg PO ACBREAKFAST 30 Days #30 tab.cr 03/14/21 [Rx] Sodium Chloride 0.5 gm PO BID 30 Days #60 tablet 03/14/21 [Rx] predniSONE [Prednisone] 10 mg PO DAILY 1 Days #1 tablet 03/14/21 [Rx] Past Medical History - Past Health History Medical/Surgical History: Denies Medical/Surgical History HEENT History: Reports: Impaired Vision Cardiovascular History: Reports: Afib, Heart Failure, Hypertension, Pacemaker, SOB on Exertion Respiratory History: Reports: COPD, SOB, Other (See Below) Other Respiratory History: Home O2 at 2L/[place] Gastrointestinal History: Reports: Chronic Constipation Genitourinary History: Reports: None 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: Musculoskeletal History: Reports: Arthritis Neurological History: Reports: None Psychiatric History: Reports: Anxiety Endocrine/Metabolic History: Reports: None Hematologic History: Reports: None Immunologic History: Reports: None Oncologic (Cancer) History: Reports: None Dermatologic History: Reports: None - Infectious Disease History Infectious Disease History: Reports: Chicken Pox, Measles, Mumps - Past Surgical History Head Surgeries/Procedures: Reports: None Cardiovascular Surgical History: Reports: Pacer Social & Family History - Family History Family Medical History: No Pertinent Family History - Caffeine Use Caffeine Use: Reports: Coffee, Soda - Recreational Drug Use Recreational Drug Use: No - Living Situation & Occupation Living situation: Reports: with Family Occupation: Retired ED ROS GENERAL - Review of Systems Review Of Systems: Comprehensive ROS is negative, except as noted in HPI. ED EXAM, GENERAL - Physical Exam Exam: See Below Exam Limited By: No Limitations General Appearance: Alert, No Apparent Distress Eye Exam: Bilateral Eye: PERRL Ears: Normal External Exam, Normal Canal, Hearing Grossly Normal, Normal TMs Nose: Normal Inspection, Normal Mucosa, No Blood Throat/Mouth: Normal Inspection, Normal Lips, Normal Teeth, Normal Gums, Normal Oropharynx, Normal Voice, No Airway Compromise Head: Atraumatic, Normocephalic Neck: Normal Inspection, Supple, Non-Tender, Full Range of Motion Respiratory/Chest: No Respiratory Distress (course breath sounds lower L lobe otherwise clear.) Cardiovascular: Normal Peripheral Pulses, Regular Rate, Rhythm, No Edema, No Gallop, No JVD, No Murmur, No Rub GI/Abdominal: Soft, Non-Tender (Female) Exam: Deferred Rectal (Female) Exam: Deferred Back Exam: Normal Inspection, Full Range of Motion Extremities: Normal Inspection, Normal Range of Motion, Non-Tender, Normal Capillary Refill, No Pedal Edema Neurological: Alert, Oriented, CN II-XII Intact, Normal Cognition, Normal Gait, Normal Reflexes, No Motor/Sensory Deficits Psychiatric: Normal Affect, Normal Mood Skin Exam: Warm, Dry, Intact, Normal Color, No Rash Course - Vital Signs Last Recorded V/S: Last Vital Signs Temp Pulse 76 07/09/21 14:45 Resp 36 H 07/09/21 14:45 BP 123/68 07/09/21 14:45 Pulse Ox 96 07/09/21 14:45 - Orders/Labs/Meds Orders: Active Orders 24 hr Category Date Time Status Peripheral IV Care [RC] . DIRECTED Care 07/09/21 14:43 Active CULTURE BLOOD [BC] Stat Lab 07/09/21 14:58 Received CULTURE BLOOD [BC] Stat Lab 07/09/21 15:02 Received Sodium Chloride 0.9% [Normal Saline] 500 ml Med 07/09/21 16:00 Active IV .BOLUS Sodium Chloride 0.9% [Saline Flush] Med 07/09/21 14:42 Active 10 ml FLUSH ASDIRECTED PRN Blood Culture x2 Reflex Set [OM.PC] Stat Oth 07/09/21 14:42 Ordered Peripheral IV Insertion Adult [OM.PC] Routine Oth 07/09/21 14:43 Ordered Medication Orders Sodium Chloride (Normal Saline) 500 mls @ 999 mls/hr IV .BOLUS LAMINE Last Admin: 07/09/21 16:07 Dose: 999 mls/hr Documented by: YASMIN Sodium Chloride (Sodium Chloride 0.9% 10 Ml Syringe) 10 ml FLUSH ASDIRECTED PRN PRN Reason: Keep Vein Open Last Admin: 07/09/21 16:05 Dose: 10 ml Documented by: YASMIN Labs: Laboratory Tests 07/09/21 07/09/21 07/09/21 Range/Units 15:02 15:02 15:02 WBC 8.3 (5.0-10.0) 10^3/uL RBC 4.64 (4.2-5.4) 10^6/uL Hgb 12.8 D (12.0-16.0) g/dL Hct 38.3 (37.0-47.0) % MCV 82.5 D (80-100) fL MCH 27.6 (27.0-34.0) pg MCHC 33.4 (33.0-35.0) g/dL Plt Count 309 D (150-450) 10^3/uL Neut % (Auto) 90.0 H (42.2-75.2) % Lymph % (Auto) 4.0 L (20.5-50.1) % [place] % (Auto) 5.9 (2-8) % Eos % (Auto) 0.0 L (1.0-3.0) % Baso % (Auto) 0.1 (0.0-1.0) % Sodium 125 L (136-145) mmol/L Potassium 3.8 (3.5-5.1) mmol/L Chloride 85 L (98-107) mmol/L Carbon Dioxide 32 (21-32) mmol/L Anion Gap 11.8 (7-13) mEq/L BUN 13 (7-18) mg/dL Creatinine 0.63 (0.55-1.02) mg/dL Est Cr Clr Drug Dosing 61.50 mL/min Estimated GFR (MDRD) > 60 BUN/Creatinine Ratio 20.6 (No establ ref range) Glucose 131 H (70-99) mg/dL Lactic Acid 0.9 (0.4-2.0) mmol/L Calcium 8.5 (8.5-10.1) mg/dL Total Bilirubin 0.3 (0.2-1.0) mg/dL AST 30 (15-37) U/L ALT 19 (14-59) U/L Alkaline Phosphatase 101 (46-116) U/L C-Reactive Protein 2.4 H (0.0-0.9) mg/dL Total Protein 7.7 (6.4-8.2) g/dL Albumin 3.2 L (3.4-5.0) g/dL Globulin 4.5 Albumin/Globulin Ratio 0.71 Meds: Medications Generic Name Dose Route Start Last Admin Trade Name Freq PRN Reason Stop Dose Admin Sodium Chloride 500 mls @ 999 mls/hr 12/02/21 16:00 07/09/21 16:07 Normal Saline IV 999 mls/hr .BOLUS LAMINE Administration Sodium Chloride 10 ml 07/09/21 14:42 07/09/21 16:05 Sodium Chloride 0.9% 10 Ml Syringe FLUSH 10 ml ASDIRECTED PRN Administration Keep Vein Open Discontinued Medications Generic Name Dose Route Start Last Admin Trade Name Freq PRN Reason Stop Dose Admin Sodium Chloride 1,000 mls @ 999 mls/hr 07/09/21 15:44 Normal Saline IV 07/09/21 16:44 .BOLUS ONE Departure - Departure Time of Disposition: 17:01 Disposition: Home, Self-Care 01 Condition: Good Clinical Impression: COVID-19 - Discharge Information *PRESCRIPTION DRUG MONITORING PROGRAM REVIEWED*: Not Applicable *COPY OF PRESCRIPTION DRUG MONITORING REPORT IN PATIENT AMANDO: Not Applicable Instructions: 10 Things You Can Do to Manage Your COVID-19 Symptoms at Home - [facility] (02/20/2021) Forms: ED Department Discharge Additional Instructions: Increase your oxygen to 4-5L as needed while you are active until your COVID infection improves. Use your normal 2 liters of oxygen at rest. You sodium level was a little low today, increase your salt intake for the next several days. You can use things like Gatorade or other drinks with high sodium to get your levels up. Your chest x xray show no pneumonia. Your CBC showed no elevation in your WBC indicating no systemic bacterial infection. Follow up with your primary care facility in 10 days to reevaluate you. If any new symptoms or concerns develop contact your primary care facility or return to the ER. Sepsis Event Note (ED) - Evaluation Sepsis Screening Result: No Definite Risk - Focused Exam Vital Signs: Vital Signs Pulse Resp BP Pulse Ox 07/09/21 14:45 76 36 H 123/68 96 - My Orders Last 24 Hours: My Active Orders 07/09/21 14:42 Sodium Chloride 0.9% [Saline Flush] 10 ml FLUSH ASDIRECTED PRN Blood Culture x2 Reflex Set [OM.PC] Stat 07/09/21 14:43 Peripheral IV Care [RC] . DIRECTED Peripheral IV Insertion Adult [OM.PC] Routine 07/09/21 14:58 CULTURE BLOOD [BC] Stat 07/09/21 15:02 CULTURE BLOOD [BC] Stat 07/09/21 16:00 Sodium Chloride 0.9% [Normal Saline] 500 ml IV .BOLUS - Assessment/Plan Last 24 Hours: My Active Orders 07/09/21 14:42 Sodium Chloride 0.9% [Saline Flush] 10 ml FLUSH ASDIRECTED PRN Blood Culture x2 Reflex Set [OM.PC] Stat 07/09/21 14:43 Peripheral IV Care [RC] . DIRECTED Peripheral IV Insertion Adult [OM.PC] Routine 07/09/21 14:58 CULTURE BLOOD [BC] Stat 07/09/21 15:02 CULTURE BLOOD [BC] Stat 07/09/21 16:00 Sodium Chloride 0.9% [Normal Saline] 500 ml IV .BOLUS
--- NOTE | 2021-07-09 16:29 | CR ---
EXAMINATION: Chest 1V Frontal SEX: Female AGE: 71 years CLINICAL HISTORY: 71-year-old female cough and shortness of breath who is COVID 19 positive. New cardiac pacemaker since CXR comparison film 02 December 2020. Interpretation: *Asymmetric increased right lower lobe consolidation (infiltrate and/or atelectasis) since our more recent 12 March 2021 CXR. Aspiration? Prominent cardiac silhouette but pulmonary vascularity less congested and decreased cephalization of flow. No new alveolar edema. Cardiac pacer leads intact and unchanged since 12 March 2021. Chronic pleural reactive changes blunting the right costophrenic sulcus unchanged since March films (new since November). No new lung mass or hilar lymphadenopathy. No new alveolar consolidation, air bronchograms or other peripheral "groundglass" interstitial lung densities.
== END 2021-07-09 17:26 | disposition home or self-care (01) ==
LOC: DL.ED 14:16
DX: U07.1 COVID-19 (principal); I48.91 Unspecified atrial fibrillation; I11.0 Hypertensive heart disease with heart failure; I50.9 Heart failure, unspecified; J44.9 Chronic obstructive pulmonary disease, unspecified; Z95.0 Presence of cardiac pacemaker; Z79.01 Long term (current) use of anticoagulants; Z79.899 Other long term (current) drug therapy
CPT/HCPCS: 36415; 71045; 80053; 83605; 85025; 86140; 87040; 99285; J7040

== ENCOUNTER 2021-07-15 17:27 | Emergency (ER) | payer MEDICARE, MEDICAID ==
[2021-07-15 17:38] VITALS: BP 138/65; PULSE 82
[2021-07-15] MEDS ORDERED: Sodium Chloride 0.9% 10 ML Syringe FLUSH PRN (17:41)
[2021-07-15] MEDS ORDERED: methylPREDNISolone Sodium Succinate 125 MG/2 ML SDV IVPUSH ONE (17:42)
[2021-07-15] MEDS ORDERED: Albuterol/Ipratropium 3.0-0.5 MG/3 ML Neb Soln NEB ONE (17:42)
--- NOTE | 2021-07-15 18:49 | EDM.PDOC ---
Scribed by Margarita Pan 07/15/21 1849 for Michael Powell MD <Michael Powell - Last Filed: 07/15/21 18:47> ED HPI GENERAL MEDICAL PROBLEM - General Chief Complaint: Respiratory Problem Stated Complaint: AMBULANCE Time Seen by Provider: 07/15/21 17:27 Source of Information: Reports: Patient, EMS, EMS Notes Reviewed, RN, RN Notes Reviewed History Limitations: Reports: No Limitations - History of Present Illness INITIAL COMMENTS - FREE TEXT/NARRATIVE: Patient presents to ED by [facility] with complaint of increased w eakness and SOB starting this afternoon. Covid + 07/07/2021. States coughing up green phlegm prior to coming in. 3L O2 [place]. Patient is on chronic supplemental home oxygen at 2 liters. She has history of COPD and not getting relieve with her nebulizer treatments today. She completed a Prednisone course about 4 days ago. Denies chest pain or syncope. Onset: Gradual Duration: Constant Location: Reports: Chest Severity: Severe Improves with: Reports: None Worsens with: Reports: None Associated Symptoms: Reports: No Other Symptoms - Related Data Allergies Allergy/AdvReac Type Severity Reaction Status Date / Time No Known Allergies Allergy Verified 07/09/21 14:55 Home Meds: Home Meds guaiFENesin [Mucinex] 600 mg PO BID tab.er 01/03/15 [Rx] Albuterol/Ipratropium [DuoNeb 3.0-0.5 MG/3 ML] 3 ml NEB QID 11/09/20 [History] Apixaban [Eliquis] 5 mg PO BID tablet 11/09/20 [Rx] bisacodyL [Dulcolax] 5 mg PO DAILY PRN tablet 11/09/20 [Rx] polyethylene glycoL 3350 [MiraLAX] 17 gm PO DAILY PRN packet 11/09/20 [Rx] Incurse Ellipta 62.5 mcg IH DAILY 12/02/20 [History] Pantoprazole [ProTONIX] 40 mg PO DAILY 12/02/20 [History] Roflumilast [Daliresp] 500 mg PO DAILY 12/02/20 [History] Furosemide 40 mg PO DAILY 03/12/21 [History] Metoprolol Tartrate 25 mg PO BID 03/12/21 [History] Potassium Chloride 20 meq PO TID 03/12/21 [History] Ascorbate Calcium [Vitamin C] 500 mg PO DAILY 30 Days #30 tablet 03/14/21 [Rx] Doxycycline Monohydrate 100 mg PO BID 5 Days #10 cap 03/14/21 [Rx] Ferrous Sulfate 325 mg PO BID 30 Days #60 tablet 03/14/21 [Rx] Pantoprazole [ProTONIX] 40 mg PO ACBREAKFAST 30 Days #30 tab.cr 03/14/21 [Rx] Sodium Chloride 0.5 gm PO BID 30 Days #60 tablet 03/14/21 [Rx] predniSONE [Prednisone] 10 mg PO DAILY 1 Days #1 tablet 03/14/21 [Rx] Past Medical History - Past Health History Medical/Surgical History: Denies Medical/Surgical History HEENT History: Reports: Impaired Vision Cardiovascular History: Reports: Afib, Heart Failure, Hypertension, Pacemaker, SOB on Exertion Respiratory History: Reports: COPD, SOB, Other (See Below) Other Respiratory History: Home O2 at 2L/[place] Gastrointestinal History: Reports: Chronic Constipation Genitourinary History: Reports: None 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: Musculoskeletal History: Reports: Arthritis Neurological History: Reports: None Psychiatric History: Reports: Anxiety Endocrine/Metabolic History: Reports: None Hematologic History: Reports: None Immunologic History: Reports: None Oncologic (Cancer) History: Reports: None Dermatologic History: Reports: None - Infectious Disease History Infectious Disease History: Reports: Chicken Pox, Measles, Mumps - Past Surgical History Head Surgeries/Procedures: Reports: None Cardiovascular Surgical History: Reports: Pacer Social & Family History - Family History Family Medical History: No Pertinent Family History - Caffeine Use Caffeine Use: Reports: Coffee, Soda - Living Situation & Occupation Living situation: Reports: with Family Occupation: Retired ED ROS GENERAL - Review of Systems Review Of Systems: Comprehensive ROS is negative, except as noted in HPI. ED EXAM, GENERAL - Physical Exam Exam: See Below Exam Limited By: No Limitations General Appearance: Alert, Anxious, Thin Eye Exam: Bilateral Eye: Normal Inspection Nose: Normal Inspection, Normal Mucosa, No Blood Throat/Mouth: Normal Lips, Normal Voice, No Airway Compromise Head: Atraumatic, Normocephalic Neck: Normal Inspection, Non-Tender Respiratory/Chest: No Respiratory Distress, No Accessory Muscle Use, Chest Non- Tender, Decreased Breath Sounds, Crackles, Wheezing. No: Rales, Rhonchi Cardiovascular: Regular Rate, Rhythm, No Edema GI/Abdominal: Normal Bowel Sounds, Soft, Non-Tender Back Exam: Normal Inspection Extremities: Normal Inspection, Normal Range of Motion, Non-Tender, No Pedal Edema, Normal Capillary Refill. 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 Departure - Departure Disposition: Home, Self-Care 01 Clinical Impression: Pneumonia due to COVID-19 virus, Hyponatremia, Oxygen dependent, History of COPD - Discharge Information Instructions: 10 Things You Can Do to Manage Your COVID-19 Symptoms at Home - [facility] (02/20/2021) Referrals: PCP,None [Primary Care Provider] - Forms: ED Department Discharge Additional Instructions: Rx: doxycycline 100mg (#20) 1.) Start your antibiotic tomorrow morning; take all of the pills until gone, even as your symptoms improve. 2.) Follow up with your primary care provider in 2-3 days regarding today's visit. 3.) Continue on your oxygen, as previously prescribed. You may increase to 3-5L while up with ambulation. 4.) Follow up with your primary care provider sooner, or return to the emergency department, with any worsening symptoms despite medication and oxygen changes. <Shonna Morrell - Last Filed: 07/16/21 01:16> Course - Vital Signs Last Recorded V/S: Last Vital Signs Temp 98.8 F 07/15/21 17:31 Pulse 82 07/15/21 17:31 Resp 20 07/15/21 17:31 BP 138/65 07/15/21 17:31 Pulse Ox 93 L 07/15/21 17:31 - Orders/Labs/Meds Orders: Active Orders 24 hr Category Date Time Status CULTURE BLOOD [BC] Stat Lab 07/15/21 18:07 Received CULTURE BLOOD [BC] Stat Lab 07/15/21 18:13 Received Blood Culture x2 Reflex Set [OM.PC] Stat Oth 07/15/21 17:40 Ordered Peripheral IV Insertion Adult [OM.PC] Stat Oth 07/15/21 17:41 Ordered Labs: Laboratory Tests 07/15/21 07/15/21 07/15/21 Range/Units 18:07 18:07 18:07 WBC 11.4 H (5.0-10.0) 10^3/uL RBC 4.49 (4.2-5.4) 10^6/uL Hgb 12.4 (12.0-16.0) g/dL Hct 37.4 (37.0-47.0) % MCV 83.3 (80-100) fL MCH 27.6 (27.0-34.0) pg MCHC 33.2 (33.0-35.0) g/dL Plt Count 447 D (150-450) 10^3/uL Neut % (Auto) 84.1 H (42.2-75.2) % Lymph % (Auto) 6.7 L (20.5-50.1) % [place] % (Auto) 8.6 H (2-8) % Eos % (Auto) 0.5 L (1.0-3.0) % Baso % (Auto) 0.1 (0.0-1.0) % Add Manual Diff Yes Neutrophils % (Manual) 80 H (42-75) % Band Neutrophils % 4 % Lymphocytes % (Manual) 7 L (20-50) % Monocytes % (Manual) 8 (2-8) % Basophils % (Manual) 1 PT 10.9 (9.0-12.0) SEC INR 1.1 (0.9-1.2) APTT 26.3 (22.0-34.0) SEC D-Dimer, Quantitative 403 H (0-400) ng/mL Sodium 128 L (136-145) mmol/L Potassium 3.7 (3.5-5.1) mmol/L Chloride 87 L (98-107) mmol/L Carbon Dioxide 35 H (21-32) mmol/L Anion Gap 9.7 (7-13) mEq/L BUN 9 (7-18) mg/dL Creatinine 0.63 (0.55-1.02) mg/dL Est Cr Clr Drug Dosing 62.07 mL/min Estimated GFR (MDRD) > 60 BUN/Creatinine Ratio 14.3 (No establ ref range) Glucose 132 H (70-99) mg/dL Lactic Acid (0.4-2.0) mmol/L Calcium 8.6 (8.5-10.1) mg/dL Ferritin (8-252) mg/mL Total Bilirubin 0.4 (0.2-1.0) mg/dL AST 25 (15-37) U/L ALT 29 (14-59) U/L Alkaline Phosphatase 88 (46-116) U/L Troponin I High Sens 13 (<=51) pg/mL C-Reactive Protein 8.4 H (0.0-0.9) mg/dL B-Natriuretic Peptide 211 H (0-100) pg/ml Total Protein 7.4 (6.4-8.2) g/dL Albumin 2.7 L (3.4-5.0) g/dL Globulin 4.7 Albumin/Globulin Ratio 0.57 07/15/21 07/15/21 Range/Units 18:07 18:07 WBC (5.0-10.0) 10^3/uL RBC (4.2-5.4) 10^6/uL Hgb (12.0-16.0) g/dL Hct (37.0-47.0) % MCV (80-100) fL MCH (27.0-34.0) pg MCHC (33.0-35.0) g/dL Plt Count (150-450) 10^3/uL Neut % (Auto) (42.2-75.2) % Lymph % (Auto) (20.5-50.1) % [place] % (Auto) (2-8) % Eos % (Auto) (1.0-3.0) % Baso % (Auto) (0.0-1.0) % Add Manual Diff Neutrophils % (Manual) (42-75) % Band Neutrophils % % Lymphocytes % (Manual) (20-50) % Monocytes % (Manual) (2-8) % Basophils % (Manual) PT (9.0-12.0) SEC INR (0.9-1.2) APTT (22.0-34.0) SEC D-Dimer, Quantitative (0-400) ng/mL Sodium (136-145) mmol/L Potassium (3.5-5.1) mmol/L Chloride (98-107) mmol/L Carbon Dioxide (21-32) mmol/L Anion Gap (7-13) mEq/L BUN (7-18) mg/dL Creatinine (0.55-1.02) mg/dL Est Cr Clr Drug Dosing mL/min Estimated GFR (MDRD) BUN/Creatinine Ratio (No establ ref range) Glucose (70-99) mg/dL Lactic Acid 2.4 H* (0.4-2.0) mmol/L Calcium (8.5-10.1) mg/dL Ferritin 390 H (8-252) mg/mL Total Bilirubin (0.2-1.0) mg/dL AST (15-37) U/L ALT (14-59) U/L Alkaline Phosphatase (46-116) U/L Troponin I High Sens (<=51) pg/mL C-Reactive Protein (0.0-0.9) mg/dL B-Natriuretic Peptide (0-100) pg/ml Total Protein (6.4-8.2) g/dL Albumin (3.4-5.0) g/dL Globulin Albumin/Globulin Ratio Meds: Medications Discontinued Medications Generic Name Dose Route Start Last Admin Trade Name Freq PRN Reason Stop Dose Admin Albuterol/Ipratropium 3 ml 07/15/21 17:42 07/15/21 18:15 Albuterol/Ipratropium 3.0-0.5 Mg/3 Ml Neb Soln NEB 07/15/21 17:43 3 ml ONETIME ONE Administration Doxycycline Monohydrate 100 mg 07/15/21 20:09 07/15/21 20:33 Doxycycline Monohydrate 100 Mg Cap PO 07/15/21 20:10 100 mg ONETIME ONE Administration Methylprednisolone Sodium Succinate 125 mg 07/15/21 17:42 07/15/21 18:15 Methylprednisolone Sodium Succinate 125 Mg/2 Ml Sdv IVPUSH 07/15/21 17:43 125 mg ONETIME ONE Administration Sodium Chloride 10 ml 07/15/21 17:41 07/15/21 18:17 Sodium Chloride 0.9% 10 Ml Syringe FLUSH 10 ml ASDIRECTED PRN Administration Keep Vein Open - Radiology Interpretation Free Text/Narrative:: [facility] [place] [facility] Final Radiology Report Call: [phone] assistance Online chat: [email or web address] Mailing Name: BILLY HILL Age: 71Years F Date: 07/15/2021 SSN: -- : [id number] Study: CR CHEST 1V FRONTAL Requesting Physician: Shonna Morrell Images: 1 Addl Studies: Provided Clinical History: Crackles to bilateral bases, Wheezing; COVID + Contrast: Contrast Medium: Contrast Amount: Contrast Method: Page 1 of 2 PROCEDURE INFORMATION: Exam: XR Chest Exam date and time: 07/15/2021 7:17 PM Age: 71 years old Clinical indication: Other: Crackles to bilateral bases, wheezing; Covid +; Additional info: Crackles to bilateral bases, wheezing; Covid + TECHNIQUE: Imaging protocol: XR of the chest. Views: 1 view. COMPARISON: CR Chest 1V Frontal 07/19/2020 2:59 PM FINDINGS: Tubes, catheters and devices: Left chest cardiac conduction device in place. Lungs: Bilateral background coarse reticular pulmonary opacities. Mild superimposed patchy opacities, right greater than left. Pleural spaces: Probable small right pleural effusion. No evidence of left pleural effusion. No pneumothorax. Heart/Mediastinum: Unremarkable. No cardiomegaly. Bones/joints: No evidence of acute osseous abnormality. IMPRESSION: Findings suggest and acute airspace process, possibly infectious, superimposed on background chronic lung disease. Thank you for allowing us to participate in the care of your patient. Dictated and Authenticated by: Sebastian Champion MD 07/15/2021 7:41 PM Central Time ([place] & [place]) - Re-Assessments/Exams Free Text/Narrative Re-Assessment/Exam: 07/15/[address] Ferrara; patient not requiring an increase in oxygen, mild elevation in WBC, improving hyponatremia. Will start patient on doxycycline PO and follow up with PCP in 2-3 days. Patient instructed to increase oxygen to 3-5L while up with ambulation, and to return it to baseline while at rest. Findings of lab work, imaging, and conversation with Dr. Ferrara reviewed with patient. Red flag signs and symptoms which would warrant immediate reevaluation discussed. She verbalized understanding and agreement with the plan of care. Departure - Departure Time of Disposition: 20:37 Condition: Good - Discharge Information *PRESCRIPTION DRUG MONITORING PROGRAM REVIEWED*: Not Applicable *COPY OF PRESCRIPTION DRUG MONITORING REPORT IN PATIENT AMANDO: Not Applicable Sepsis Event Note (ED) - Focused Exam Vital Signs: Vital Signs Temp Pulse Resp BP Pulse Ox 07/15/21 17:31 98.8 F 82 20 138/65 93 L I have read and agree with the documentation that has been completed regarding this visit. By signing this record, I attest that the documentation was completed in my physical presence and is an accurate record of the encounter.
[2021-07-15 18:52] LABS: ANION GAP 9.7 mEq/L (7-13); CHLORIDE,CL 87 mmol/L (98-107); SODIUM,NA 128 mmol/L (136-145)
[2021-07-15 18:53] LABS: PTT,PARTIAL THROMBOPLSTIN TIME 26.3 SEC (22.0-34.0)
--- NOTE | 2021-07-15 19:42 | CR ---
PROCEDURE INFORMATION: Exam: XR Chest Exam date and time: 07/15/2021 7:17 PM Age: 71 years old Clinical indication: Other: Crackles to bilateral bases, wheezing; Covid +; Additional info: Crackles to bilateral bases, wheezing; Covid + TECHNIQUE: Imaging protocol: XR of the chest. Views: 1 view. COMPARISON: CR Chest 1V Frontal 07/19/2020 2:59 PM FINDINGS: Tubes, catheters and devices: Left chest cardiac conduction device in place. Lungs: Bilateral background coarse reticular pulmonary opacities. Mild superimposed patchy opacities, right greater than left. Pleural spaces: Probable small right pleural effusion. No evidence of left pleural effusion. No pneumothorax. Heart/Mediastinum: Unremarkable. No cardiomegaly. Bones/joints: No evidence of acute osseous abnormality. IMPRESSION: Findings suggest and acute airspace process, possibly infectious, superimposed on background chronic lung disease.
[2021-07-15] MEDS ORDERED: Doxycycline Monohydrate 100 MG Cap PO ONE (20:09)
== END 2021-07-15 21:31 | disposition home or self-care (01) ==
LOC: DL.ED 17:27
DX: U07.1 COVID-19 (principal); J12.82 Pneumonia due to coronavirus disease 2019; E87.1 Hypo-osmolality and hyponatremia; J44.9 Chronic obstructive pulmonary disease, unspecified; I48.91 Unspecified atrial fibrillation; I11.0 Hypertensive heart disease with heart failure; I50.9 Heart failure, unspecified; M19.90 Unspecified osteoarthritis, unspecified site; Z79.01 Long term (current) use of anticoagulants; Z79.899 Other long term (current) drug therapy
CPT/HCPCS: 36415; 71045; 80053; 82728; 83605; 83880; 84484; 85025; 85379; 85610; 85730; 86140; 87040; 96374; 99285; A9270; J2930; J7620-GY

== ENCOUNTER 2021-07-20 07:51 | Emergency (ER) | payer MEDICARE, MEDICAID ==
--- NOTE | 2021-07-20 08:01 | EDM.PDOC ---
ED HPI GENERAL MEDICAL PROBLEM - General Stated Complaint: AMBULANCE Time Seen by Provider: 07/20/21 08:01 Source of Information: Reports: Patient, EMS, Old Records, RN, RN Notes Reviewed History Limitations: Reports: No Limitations - History of Present Illness INITIAL COMMENTS - FREE TEXT/NARRATIVE: Manju is a 71 y/o female with a history of AFib, s/p pacemaker and anticoagulated on apixaban, as well as COPD dependent on home O2 who presents to the ED via [facility] with complaints of shortness of breath. The patient was diagnosed with COVID-19 13 days ago (07/07/21); she has been into the clinic and ED multiple times since her diagnosis and has been treated with a course of azithromycin and prednisone 40mg x5 days, increased O2 to 3-5L with ambulation, and more recently a course of doxycycline for which she is currently on day four. She notes she woke this morning with increased shortness of breath and a sensation that mucous was caught in her throat; she did not take her previously prescribed inhalers or nebulizers this morning. She notes her cough is improving and her taste/smell are returning. She denies fever, shaking chills, vision changes, dizziness, sinus congestion, chest pain/pressure, palpitations, dyspepsia, nausea, vomiting, or abdominal pain. She has been taking Mucinex for cough. She denies tobacco, alcohol, or recreational drug use. The patient has not been vaccinated for COVID-19 or Influenza. - Related Data Allergies Allergy/AdvReac Type Severity Reaction Status Date / Time No Known Allergies Allergy Verified 07/20/21 08:22 Home Meds: Home Meds guaiFENesin [Mucinex] 600 mg PO BID tab.er 01/03/15 [Rx] Albuterol/Ipratropium [DuoNeb 3.0-0.5 MG/3 ML] 3 ml NEB QID 11/09/20 [History] Apixaban [Eliquis] 5 mg PO BID tablet 11/09/20 [Rx] bisacodyL [Dulcolax] 5 mg PO DAILY PRN tablet 11/09/20 [Rx] polyethylene glycoL 3350 [MiraLAX] 17 gm PO DAILY PRN packet 11/09/20 [Rx] Incurse Ellipta 62.5 mcg IH DAILY 12/02/20 [History] Pantoprazole [ProTONIX] 40 mg PO DAILY 12/02/20 [History] Roflumilast [Daliresp] 500 mg PO DAILY 12/02/20 [History] Furosemide 40 mg PO DAILY 03/12/21 [History] Metoprolol Tartrate 25 mg PO BID 03/12/21 [History] Potassium Chloride 20 meq PO TID 03/12/21 [History] Ascorbate Calcium [Vitamin C] 500 mg PO DAILY 30 Days #30 tablet 03/14/21 [Rx] Doxycycline Monohydrate 100 mg PO BID 5 Days #10 cap 03/14/21 [Rx] Ferrous Sulfate 325 mg PO BID 30 Days #60 tablet 03/14/21 [Rx] Pantoprazole [ProTONIX] 40 mg PO ACBREAKFAST 30 Days #30 tab.cr 03/14/21 [Rx] Sodium Chloride 0.5 gm PO BID 30 Days #60 tablet 03/14/21 [Rx] predniSONE [Prednisone] 10 mg PO DAILY 1 Days #1 tablet 03/14/21 [Rx] Past Medical History - Past Health History Medical/Surgical History: Denies Medical/Surgical History HEENT History: Reports: Impaired Vision Cardiovascular History: Reports: Afib, Heart Failure, Hypertension, Pacemaker, SOB on Exertion Respiratory History: Reports: COPD, SOB, Other (See Below) Other Respiratory History: Home O2 at 2L/NC Gastrointestinal History: Reports: Chronic Constipation Genitourinary History: Reports: None 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: Musculoskeletal History: Reports: Arthritis Neurological History: Reports: None Psychiatric History: Reports: Anxiety Endocrine/Metabolic History: Reports: None Hematologic History: Reports: None Immunologic History: Reports: None Oncologic (Cancer) History: Reports: None Dermatologic History: Reports: None - Infectious Disease History Infectious Disease History: Reports: Chicken Pox, Measles, Mumps - Past Surgical History Head Surgeries/Procedures: Reports: None Cardiovascular Surgical History: Reports: Pacer Social & Family History - Family History Family Medical History: No Pertinent Family History - Caffeine Use Caffeine Use: Reports: None - Living Situation & Occupation Living situation: Reports: with Family Occupation: Retired ED ROS GENERAL - Review of Systems Review Of Systems: Comprehensive ROS is negative, except as noted in HPI. ED EXAM, GENERAL - Physical Exam Exam: See Below Exam Limited By: No Limitations General Appearance: Alert, No Apparent Distress, Thin Eye Exam: Bilateral Eye: EOMI, Normal Inspection, PERRL (3mm) Ears: Normal External Exam, Normal Canal, Hearing Grossly Normal, Normal TMs Ear Exam: Bilateral Ear: Auricle Normal, Canal Normal, TM normal Nose: Normal Inspection Throat/Mouth: Normal Inspection, Normal Oropharynx, Normal Voice, No Airway Compromise Head: Atraumatic Neck: Normal Inspection, Supple, Non-Tender, Full Range of Motion. No: Lymphadenopathy (L), Lymphadenopathy (R) Respiratory/Chest: No Accessory Muscle Use, Chest Non-Tender, Respiratory Distress (Tachypnea with RR mid 20s), Crackles (To bilateral bases), Rales (To right mid-lobe), Other. No: Rhonchi, Wheezing, Stridor Cardiovascular: Normal Peripheral Pulses, Regular Rate, Rhythm (V-paced rhythm with 100% capture), No Gallop, No JVD, No Murmur, No Rub. No: No Edema Peripheral Pulses: 2+: Radial (L), Radial (R) GI/Abdominal: Normal Bowel Sounds, Soft, Non-Tender, No Distention, No Abnormal Bruit, No Mass, Pelvis Stable (Female) Exam: Deferred Rectal (Female) Exam: Deferred Back Exam: Full Range of Motion, Other (Kyphosis) Extremities: Normal Inspection, Normal Range of Motion, Normal Capillary Refill, Pedal Edema (Trace pitting, bilaterally) Neurological: Alert, Oriented, CN II-XII Intact, Normal Cognition, Normal Reflexes, No Motor/Sensory Deficits Psychiatric: Normal Affect, Normal Mood Skin Exam: Warm, Dry, Intact, Normal Color, No Rash. No: Cyanosis, Jaundice, Mottled, Pallor Lymphatic: No Adenopathy #1 Interpretation EKG Date: 07/20/21 Time: 08:02 Rhythm: Other (V-Paced) Rate (Beats/Min): 71 [place]: RAD-Right [place] Deviation P-Wave: Absent QRS: Wide ST-T: Normal QT: Prolonged (QTc 0.538) Comparison: Change From Previous EKG (03/12/2021) EKG Interpretation Comments: V-Paced; RAD; Prolonged QTc; No evidence of acute myocardial ischemia Course - Vital Signs Last Recorded V/S: Last Vital Signs Temp 98.9 F 07/20/21 08:00 Pulse 88 07/20/21 08:00 Resp 26 H 07/20/21 08:00 BP 138/68 07/20/21 08:00 Pulse Ox 98 07/20/21 08:00 - Orders/Labs/Meds Orders: Active Orders 24 hr Category Date Time Status CULTURE BLOOD [BC] Stat Lab 07/20/21 08:05 Results CULTURE BLOOD [BC] Stat Lab 07/20/21 08:47 Received Blood Culture x2 Reflex Set [OM.PC] Stat Oth 07/20/21 08:27 Ordered Labs: Laboratory Tests 07/20/21 07/20/21 07/20/21 Range/Units 08:05 08:05 08:05 WBC 17.7 H (5.0-10.0) 10^3/uL RBC 4.38 (4.2-5.4) 10^6/uL Hgb 12.0 (12.0-16.0) g/dL Hct 36.4 L (37.0-47.0) % MCV 83.1 (80-100) fL MCH 27.4 (27.0-34.0) pg MCHC 33.0 (33.0-35.0) g/dL Plt Count 541 H D (150-450) 10^3/uL Neut % (Auto) 88.0 H (42.2-75.2) % Lymph % (Auto) 4.6 L (20.5-50.1) % [place] % (Auto) 6.8 (2-8) % Eos % (Auto) 0.5 L (1.0-3.0) % Baso % (Auto) 0.1 (0.0-1.0) % PT 11.0 (9.0-12.0) SEC INR 1.1 (0.9-1.2) APTT 27.2 (22.0-34.0) SEC D-Dimer, Quantitative 564 H (0-400) ng/mL Sodium 126 L (136-145) mmol/L Potassium 4.0 (3.5-5.1) mmol/L Chloride 87 L (98-107) mmol/L Carbon Dioxide 34 H (21-32) mmol/L Anion Gap 9.0 (7-13) mEq/L BUN 8 (7-18) mg/dL Creatinine 0.57 (0.55-1.02) mg/dL Est Cr Clr Drug Dosing TNP Estimated GFR (MDRD) > 60 BUN/Creatinine Ratio 14.0 (No establ ref range) Glucose 118 H (70-99) mg/dL Lactic Acid (0.4-2.0) mmol/L Calcium 8.8 (8.5-10.1) mg/dL Magnesium 2.0 (1.8-2.4) mg/dL Total Bilirubin 1.1 H (0.2-1.0) mg/dL AST 17 (15-37) U/L ALT 20 (14-59) U/L Alkaline Phosphatase 94 (46-116) U/L Troponin I High Sens 9 (<=51) pg/mL C-Reactive Protein 6.8 H (0.0-0.9) mg/dL B-Natriuretic Peptide 210 H (0-100) pg/ml Total Protein 6.8 (6.4-8.2) g/dL Albumin 2.6 L (3.4-5.0) g/dL Globulin 4.2 Albumin/Globulin Ratio 0.62 Urine Color (YELLOW) Urine Appearance (CLEAR) Urine pH (5.0-9.0) Ur Specific [place] (1.005-1.030) Urine Protein (NEGATIVE) Urine Glucose (UA) (NEGATIVE) Urine Ketones (NEGATIVE) Urine Occult Blood (NEGATIVE) Urine Nitrite (NEGATIVE) Urine Bilirubin (NEGATIVE) Urine Urobilinogen (0.2-1.0) mg/dL Ur Leukocyte Esterase (NEGATIVE) 07/20/21 07/20/21 Range/Units 08:05 11:15 WBC (5.0-10.0) 10^3/uL RBC (4.2-5.4) 10^6/uL Hgb (12.0-16.0) g/dL Hct (37.0-47.0) % MCV (80-100) fL MCH (27.0-34.0) pg MCHC (33.0-35.0) g/dL Plt Count (150-450) 10^3/uL Neut % (Auto) (42.2-75.2) % Lymph % (Auto) (20.5-50.1) % [place] % (Auto) (2-8) % Eos % (Auto) (1.0-3.0) % Baso % (Auto) (0.0-1.0) % PT (9.0-12.0) SEC INR (0.9-1.2) APTT (22.0-34.0) SEC D-Dimer, Quantitative (0-400) ng/mL Sodium (136-145) mmol/L Potassium (3.5-5.1) mmol/L Chloride (98-107) mmol/L Carbon Dioxide (21-32) mmol/L Anion Gap (7-13) mEq/L BUN (7-18) mg/dL Creatinine (0.55-1.02) mg/dL Est Cr Clr Drug Dosing Estimated GFR (MDRD) BUN/Creatinine Ratio (No establ ref range) Glucose (70-99) mg/dL Lactic Acid 0.8 (0.4-2.0) mmol/L Calcium (8.5-10.1) mg/dL Magnesium (1.8-2.4) mg/dL Total Bilirubin (0.2-1.0) mg/dL AST (15-37) U/L ALT (14-59) U/L Alkaline Phosphatase (46-116) U/L Troponin I High Sens (<=51) pg/mL C-Reactive Protein (0.0-0.9) mg/dL B-Natriuretic Peptide (0-100) pg/ml Total Protein (6.4-8.2) g/dL Albumin (3.4-5.0) g/dL Globulin Albumin/Globulin Ratio Urine Color Yellow (YELLOW) Urine Appearance Clear (CLEAR) Urine pH 7.0 (5.0-9.0) Ur Specific [place] 1.010 (1.005-1.030) Urine Protein Negative (NEGATIVE) Urine Glucose (UA) Negative (NEGATIVE) Urine Ketones Negative (NEGATIVE) Urine Occult Blood Negative (NEGATIVE) Urine Nitrite Negative (NEGATIVE) Urine Bilirubin Negative (NEGATIVE) Urine Urobilinogen 0.2 (0.2-1.0) mg/dL Ur Leukocyte Esterase Negative (NEGATIVE) Meds: Medications Discontinued Medications Generic Name Dose Route Start Last Admin Trade Name Freq PRN Reason Stop Dose Admin Albuterol/Ipratropium 3 ml 07/20/21 08:27 07/20/21 08:43 Albuterol/Ipratropium 3.0-0.5 Mg/3 Ml Neb Soln NEB 07/20/21 08:28 3 ml ONETIME ONE Administration Levofloxacin/Dextrose 750 mg/ 150 mls @ 100 mls/hr 07/20/21 10:44 07/20/21 12:50 Premix IV 07/20/21 12:13 Infused ONETIME ONE Infusion - Radiology Interpretation Free Text/Narrative:: [facility] [place] [facility] Final Radiology Report Call: [phone] assistance Online chat: [email or web address] Name: MANJU HILL Age: 71Years F Date: 07/20/2021 SSN: -- : [id number] Study: CR CHEST 1V FRONTAL Requesting Physician: Shonna Morrell Images: 1 Addl Studies: Provided Clinical History: Crackles, bilaterally; Rales; COVID + 07/07 Contrast: Contrast Medium: Contrast Amount: Contrast Method: Page 1 of 2 PROCEDURE INFORMATION: Exam: XR Chest Exam date and time: 07/20/2021 9:04 AM Age: 71 years old Clinical indication: Other: Crackles, bilaterally; Rales; Covid + 07/07 TECHNIQUE: Imaging protocol: XR of the chest. Views: 1 view. COMPARISON: CR Chest 1V Frontal 07/15/2021 7:17 PM FINDINGS: Tubes, catheters and devices: A left-sided pacemaker is again present. Lungs: There are again coarse interstitial opacities about the lungs with areas of patchy airspace opacity at the right more than left bases. Pleural spaces: A small right pleural effusion is probably again present. The left costophrenic angle is sharp. There is again biapical pleural scarring. No pneumothorax is identifie d. Heart/Mediastinum: The cardiomediastinal silhouette is stable in appearance allowing for differences in positioning. Bones/joints: Degenerative changes again involve the spine. IMPRESSION: Stable radiographic appearance of the chest since 07/15/2021. Thank you for allowing us to participate in the care of your patient. Dictated and Authenticated by: Ismael Jurado MD 07/20/2021 9:44 AM Central Time ([place] & [place]) - Re-Assessments/Exams Free Text/Narrative Re-Assessment/Exam: 07/20/21 DuoNeb administered. Levaquin 750mg IVPB administered. Case discussed with STEPHANY Donis at [facility] who kindly accepted patient for admission as this facility has no staffed beds available. Findings of examination, lab work, and imaging reviewed with patient. Patient verbalized understanding and agreement with the plan of care. Departure - Departure Time of Disposition: 13:30 Disposition: DC/Tfer to Other 70 Condition: Fair Clinical Impression: Pneumonia due to COVID-19 virus, Pleural effusion Pneumonia Qualifiers: Pneumonia type: due to unspecified organism Laterality: right Lung location: lower lobe of lung Qualified Code(s): J18.9 - Pneumonia, unspecified organism - Discharge Information Forms: ED Department Discharge, Interfacility Transfer EMTALA Sepsis Event Note (ED) - Focused Exam Vital Signs: Vital Signs Temp Pulse Resp BP Pulse Ox 07/20/21 08:00 98.9 F 88 26 H 138/68 98 - My Orders Last 24 Hours: My Active Orders 07/20/21 08:05 CULTURE BLOOD [BC] Stat 07/20/21 08:27 Blood Culture x2 Reflex Set [OM.PC] Stat 07/20/21 08:47 CULTURE BLOOD [BC] Stat - Assessment/Plan Last 24 Hours: My Active Orders 07/20/21 08:05 CULTURE BLOOD [BC] Stat 07/20/21 08:27 Blood Culture x2 Reflex Set [OM.PC] Stat 07/20/21 08:47 CULTURE BLOOD [BC] Stat
[2021-07-20 08:18] VITALS: BP 138/68; PULSE 88
[2021-07-20] MEDS ORDERED: Albuterol/Ipratropium 3.0-0.5 MG/3 ML Neb Soln NEB ONE (08:27)
[2021-07-20 08:33] LABS: PTT,PARTIAL THROMBOPLSTIN TIME 27.2 SEC (22.0-34.0)
[2021-07-20 08:39] LABS: CHLORIDE,CL 87 mmol/L (98-107); SODIUM,NA 126 mmol/L (136-145)
--- NOTE | 2021-07-20 09:45 | CR ---
PROCEDURE INFORMATION: Exam: XR Chest Exam date and time: 07/20/2021 9:04 AM Age: 71 years old Clinical indication: Other: Crackles, bilaterally; Rales; Covid + 07/07 TECHNIQUE: Imaging protocol: XR of the chest. Views: 1 view. COMPARISON: CR Chest 1V Frontal 07/15/2021 7:17 PM FINDINGS: Tubes, catheters and devices: A left-sided pacemaker is again present. Lungs: There are again coarse interstitial opacities about the lungs with areas of patchy airspace opacity at the right more than left bases. Pleural spaces: A small right pleural effusion is probably again present. The left costophrenic angle is sharp. There is again biapical pleural scarring. No pneumothorax is identified. Heart/Mediastinum: The cardiomediastinal silhouette is stable in appearance allowing for differences in positioning. Bones/joints: Degenerative changes again involve the spine. IMPRESSION: Stable radiographic appearance of the chest since 07/15/2021.
[2021-07-20] MEDS ORDERED: Levofloxacin/Dextrose 5%-Water 750 MG in Premix Bag 1 BAG IV ONE (10:44)
== END 2021-07-20 13:30 | disposition other institution (70) ==
LOC: DL.ED 07:51
DX: U07.1 COVID-19 (principal); J12.82 Pneumonia due to coronavirus disease 2019; J91.8 Pleural effusion in other conditions classified elsewhere; I11.0 Hypertensive heart disease with heart failure; I50.9 Heart failure, unspecified; I48.91 Unspecified atrial fibrillation; J44.9 Chronic obstructive pulmonary disease, unspecified; M19.90 Unspecified osteoarthritis, unspecified site; Z95.0 Presence of cardiac pacemaker; Z79.01 Long term (current) use of anticoagulants; Z79.899 Other long term (current) drug therapy
CPT/HCPCS: 36415; 71045; 80053; 81003; 83605; 83735; 83880; 84484; 85025; 85379; 85610; 85730; 86140; 87040; 93005; 94640; 96365; 96366; 99285-25; J1956; J7620-GY

== ENCOUNTER 2022-01-15 22:16 | Emergency (ER) | payer MEDICARE ==
[2022-01-15] MEDS ORDERED: Albuterol/Ipratropium 3.0-0.5 MG/3 ML Neb Soln NEB ONE (22:31)
[2022-01-15] MEDS ORDERED: methylPREDNISolone Sodium Succinate 125 MG/2 ML SDV IVPUSH ONE (22:45)
[2022-01-15] MEDS ORDERED: methylPREDNISolone Sodium Succinate 125 MG/2 ML SDV ONE (22:46)
[2022-01-15 23:14] LABS: ANION GAP 6.1 mEq/L (7-13); CHLORIDE,CL 96 mmol/L (98-107); SODIUM,NA 132 mmol/L (136-145)
[2022-01-15 23:20] LABS: ESTIMATED GFR > 60
[2022-01-15] MEDS ORDERED: cefTRIAXone 1 GM in Sodium Chloride 0.9% 50 ML IV ONE (23:24)
[2022-01-15 23:32] LABS: CORONAVIRUS COVID-19 NAA NEGATIVE (NEGATIVE)
[2022-01-16 03:04] VITALS: BP 116/65; PULSE 70
== END 2022-01-16 03:25 ==
LOC: DL.ED 22:16
DX: J18.9 Pneumonia, unspecified organism (principal); J93.11 Primary spontaneous pneumothorax; I11.0 Hypertensive heart disease with heart failure; I50.9 Heart failure, unspecified; Z79.899 Other long term (current) drug therapy; Z79.01 Long term (current) use of anticoagulants; Z20.822 Contact with and (suspected) exposure to COVID-19
CPT/HCPCS: 0240U; 36415; 71045; 71250; 80053; 83605; 83880; 85025; 85379; 87040; 93005; 96365; 96375; 99285; J0696; J2930; 93010; J7620-GY

== ENCOUNTER 2023-01-02 18:11 | Emergency (ER) | payer MEDICARE ==
[2023-01-02 18:11] VITALS: BP 152/84; PULSE 95
[2023-01-02 18:24] LABS: BASOPHILS PERCENT AUTO 0.1 % (0.0-1.0); HEMATOCRIT 35.5 % (37.0-47.0); HEMOGLOBIN 11.3 g/dL (12.0-16.0); LYMPHOCYTES PERCENT AUTO 3.4 % (20.5-50.1); MEAN CORPUSCULAR HEMOGLOBIN 27.3 pg (27.0-34.0); MEAN CORPUSCULAR HGB CONC 31.8 g/dL (33.0-35.0); MEAN CORPUSCULAR VOLUME 85.7 fL (80-100); MONOCYTES PERCENT AUTO 5.2 % (2-8); NEUTROPHILS PERCENT AUTO 91.3 % (42.2-75.2); PLATELET COUNT,PLT 461 10^3/uL (150-450); RED BLOOD CELL COUNT 4.14 10^6/uL (4.2-5.4)
[2023-01-02 18:28] LABS: WHITE BLOOD CELL COUNT,WBC 26.2 10^3/uL (5.0-10.0)
[2023-01-02 18:41] LABS: INR 1.2 (0.9-1.2); PROTHROMBIN TIME 11.8 SEC (9.0-12.0); PTT,PARTIAL THROMBOPLSTIN TIME 34.1 SEC (22.0-34.0)
[2023-01-02 18:46] LABS: LACTIC ACID 0.7 mmol/L (0.4-2.0)
[2023-01-02 18:51] LABS: B-TYPE NATRIURETIC PEPTIDE,BNP 471 pg/ml (0-100)
[2023-01-02 19:15] LABS: ALANINE AMINOTRANSFERASE,ALT 21 U/L (14-59); ALBUMIN 2.9 g/dL (3.4-5.0); ALKALINE PHOSPHATASE 129 U/L (46-116); AMYLASE 50 U/L (25-115); ANION GAP 8.6 mEq/L (7-13); ASPARTATE AMNIOTRANSFERASE,AST 25 U/L (15-37); BILIRUBIN TOTAL 0.3 mg/dL (0.2-1.0); BLOOD UREA NITROGEN,BUN 16 mg/dL (7-18); BUN/CREATININE RATIO 23.2 (No establ ref range); CALCIUM 9.1 mg/dL (8.5-10.1); CARBON DIOXIDE,CO2 35 mmol/L (21-32); CHLORIDE,CL 91 mmol/L (98-107); CREATININE 0.69 mg/dL (0.55-1.02); EST CRCL DRUG DOSING (CG) 40.46 mL/min; GLUCOSE RANDOM 158 mg/dL (70-99); LIPASE 22 U/L (73-393); MAGNESIUM 1.8 mg/dL (1.8-2.4); POTASSIUM,K 3.6 mmol/L (3.5-5.1); PROTEIN TOTAL,TP 8.3 g/dL (6.4-8.2); SODIUM,NA 131 mmol/L (136-145)
[2023-01-02 19:24] LABS: A/G RATIO 0.54; ESTIMATED GFR 91 mL/min (>=60); ETHANOL BLOOD MEDICAL < 3 mg/dL (0)
[2023-01-02] MEDS ORDERED: cefTRIAXone 1 GM Vial IVPUSH ONE (21:16)
[2023-01-02] MEDS ORDERED: Azithromycin 250 MG Tab PO ONE (21:17)
[2023-01-02 21:35] LABS: APPEARANCE,URINE CLEAR (CLEAR); BILIRUBIN,URINE NEGATIVE (NEGATIVE); COLOR,URINE YELLOW (YELLOW); GLUCOSE,URINE NEGATIVE (NEGATIVE); KETONES,URINE NEGATIVE (NEGATIVE); LEUKOCYTE ESTERASE,URINE TRACE (NEGATIVE); NITRITE,URINE NEGATIVE (NEGATIVE); OCCULT BLOOD,URINE NEGATIVE (NEGATIVE); PH,URINE 5.5 (5.0-9.0); PROTEIN,URINE NEGATIVE (NEGATIVE); UROBILINOGEN,URINE 0.2 mg/dL (0.2-1.0)
[2023-01-02 21:38] LABS: AMPHETAMINES,URINE NEGATIVE (NEGATIVE); BARBITURATES,URINE NEGATIVE (NEGATIVE); BENZODIAZEPINE,URINE POSITIVE (NEGATIVE); MDMA (ECSTASY), URINE NEGATIVE (NEGATIVE); METHADONE,URINE NEGATIVE (NEGATIVE); METHAMPHETAMINES,URINE NEGATIVE (NEGATIVE); OPIATES,URINE NEGATIVE (NEGATIVE); OXYCODONE,URINE NEGATIVE (NEGATIVE); PHENCYCLIDINE,URINE NEGATIVE (NEGATIVE); TCA,URINE NEGATIVE (NEGATIVE)
[2023-01-02 21:50] LABS: AMORPHOUS SEDIMENT,URINE FEW /HPF (NOT SEEN); BACTERIA,URINE FEW /HPF (0-FEW/HPF); EPITHELIAL CELLS,URINE FEW /HPF (NOT SEEN); MUCUS,URINE FEW /LPF (NOT SEEN); RBC,URINE 0-5 /HPF (0-5); WBC,URINE 0-5 /HPF (0-5/HPF)
[2023-01-02] MEDS ORDERED: methylPREDNISolone Sodium Succinate 125 MG/2 ML SDV IVPUSH ONE (23:01)
== END 2023-01-02 23:42 ==
LOC: DL.ED 18:11
DX: J44.1 Chronic obstructive pulmonary disease with (acute) exacerbation (principal); D72.828 Other elevated white blood cell count; R06.89 Other abnormalities of breathing; I48.91 Unspecified atrial fibrillation; I11.0 Hypertensive heart disease with heart failure; I50.9 Heart failure, unspecified; M19.90 Unspecified osteoarthritis, unspecified site; Z79.899 Other long term (current) drug therapy; Z20.822 Contact with and (suspected) exposure to COVID-19; Z79.01 Long term (current) use of anticoagulants
CPT/HCPCS: 36415; 71045; 80053; 80305-QW; 80307; 81001; 82150; 83605; 83690; 83735; 83880; 84484; 85025; 85610; 85730; 86140; 87040; 87086; 87088; 87186; 87804; 93005; 93010; 96374; 96375; 99291; 99291-25; 99292; A9270-GY; J0696; J2930; U0002

== ENCOUNTER 2023-01-28 19:04 | Emergency (ER) | payer MEDICARE ==
[2023-01-28] MEDS ORDERED: Bisacodyl 10 MG Supp RECTAL ONE (19:33)
[2023-01-28] MEDS ORDERED: Magnesium Citrate Solution 296 ML Bottle PO ONE (19:33)
[2023-01-28 20:02] VITALS: BP 128/76; PULSE 66
== END 2023-01-28 19:58 | disposition home or self-care (01) ==
LOC: DL.ED 19:04
DX: K56.41 Fecal impaction (principal); J44.9 Chronic obstructive pulmonary disease, unspecified; I11.0 Hypertensive heart disease with heart failure; I50.9 Heart failure, unspecified; I48.91 Unspecified atrial fibrillation; Z79.01 Long term (current) use of anticoagulants; Z79.899 Other long term (current) drug therapy
CPT/HCPCS: 99283; A9270; 99282

== ENCOUNTER 2024-04-25 09:25 | Inpatient (IN) | payer MEDICARE ==
[2024-04-25] MEDS: Albuterol 0.083% 2.5 MG/3 ML Neb Soln ONE (09:58)
[2024-04-25] MEDS: methylPREDNISolone Sodium Succinate 125 MG/2 ML SDV IVPUSH ONE (10:04)
[2024-04-25 10:12] LABS: BASOPHILS PERCENT AUTO 0.1 % (0.0-1.0); HEMATOCRIT 39.1 % (37.0-47.0); HEMOGLOBIN 11.8 g/dL (12.0-16.0); LYMPHOCYTES PERCENT AUTO 4.1 % (20.5-50.1); MEAN CORPUSCULAR HEMOGLOBIN 28.8 pg (27.0-34.0); MEAN CORPUSCULAR HGB CONC 30.2 g/dL (33.0-35.0); MEAN CORPUSCULAR VOLUME 95.4 fL (80-100); MONOCYTES PERCENT AUTO 4.8 % (2-8); O2 DELIVERY DEVICE NASAL CANNULA; PLATELET COUNT,PLT 378 10^3/uL (150-450); WHITE BLOOD CELL COUNT,WBC 16.5 10^3/uL (5.0-10.0)
[2024-04-25 10:17] LABS: PH,VENOUS 7.33 (7.31-7.41)
[2024-04-25 10:18] LABS: O2 SATURATION VENOUS 53.6 % (60-80); PCO2 VENOUS 81 mmHg (41-51); PO2 VENOUS 36 mmHg (35-42)
[2024-04-25 10:24] LABS: BASE EXCESS VENOUS 12.6 mmol/l ((-2)-(+3)); BICARBONATE,VENOUS 41 mmol/l (19-25)
[2024-04-25 10:34] LABS: INR 1.1 (0.9-1.2); PROTHROMBIN TIME 11.2 SEC (9.0-12.0); PTT,PARTIAL THROMBOPLSTIN TIME 32.8 SEC (22.0-34.0)
[2024-04-25 10:36] LABS: ALBUMIN 3.1 g/dL (3.4-5.0); ANION GAP 4.2 mEq/L (7-13); BILIRUBIN TOTAL 0.4 mg/dL (0.2-1.0); BUN/CREATININE RATIO 24.3 (No establ ref range); CALCIUM 9.7 mg/dL (8.5-10.1); CREATININE 0.7 mg/dL (0.55-1.02); EST CRCL DRUG DOSING (CG) 38.19 mL/min; MAGNESIUM 1.9 mg/dL (1.8-2.4); POTASSIUM,K 4.2 mmol/L (3.5-5.1); PROTEIN TOTAL,TP 8.2 g/dL (6.4-8.2)
[2024-04-25] MEDS: Albuterol 0.083% 2.5 MG/3 ML Neb Soln NEB ONE (10:38)
[2024-04-25 10:43] LABS: A/G RATIO 0.61
[2024-04-25 10:52] LABS: CORONAVIRUS COVID-19 NAA NEGATIVE (NEGATIVE); INFLUENZA A NAA NEGATIVE (NEGATIVE); INFLUENZA B NAA NEGATIVE (NEGATIVE)
[2024-04-25] MEDS: Iopamidol 612 MG/ML 100 ML Bottle IVPUSH ONE (11:01)
[2024-04-25] MEDS: Azithromycin 500 MG in Sodium Chloride 0.9% 250 ML IV ONE (12:22)
[2024-04-25] MEDS: cefTRIAXone 1 GM Vial IVPUSH ONE (12:27)
[2024-04-25] MEDS ORDERED: Polyethylene Glycol 3350 Powder 17 GM Packet PO PRN (14:15)
[2024-04-25] MEDS ORDERED: Morphine 2 MG/ML SYRINGE IVPUSH PRN (14:15)
[2024-04-25] MEDS ORDERED: Sodium Chloride 0.9% 10 ML Syringe FLUSH PRN (14:15)
[2024-04-25] MEDS ORDERED: Melatonin 3 MG Tab PO PRN (14:15)
[2024-04-25] MEDS ORDERED: Albuterol/Ipratropium 3.0-0.5 MG/3 ML Neb Soln NEB PRN (14:15)
[2024-04-25] MEDS ORDERED: Ondansetron 4 MG/2 ML SDV IVPUSH PRN (14:15)
[2024-04-25] MEDS ORDERED: Acetaminophen/HYDROcodone 325-5 MG Tab PO PRN (14:15)
[2024-04-25] MEDS ORDERED: Sennosides/Docusate Sodium 50-8.6 MG Tab PO PRN (14:15)
[2024-04-25] MEDS ORDERED: Metoclopramide 10 MG/2 ML SDV IV PRN (14:15)
[2024-04-25] MEDS ORDERED: Acetaminophen 325 MG Tab PO PRN (14:15)
[2024-04-25] MEDS ORDERED: Magnesium Hydroxide 400 MG/5 ML Susp 30 ML Cup PO PRN (14:15)
[2024-04-25] MEDS ORDERED: Glucagon,Human Recombinant 1 MG Vial IM PRN (14:26)
[2024-04-25] MEDS ORDERED: 50% Dextrose in Water 50 ML Syringe IVPUSH PRN (14:26)
[2024-04-25] MEDS ORDERED: Aminophylline 500 MG in Sodium Chloride 0.9% 500 ML IV SCH (14:30)
[2024-04-25 14:36] LABS: C-REACTIVE PROTEIN 8.28 ng/dL (<=0.50)
[2024-04-25] MEDS ORDERED: Sodium Chloride 0.9% 100 ML IV PRN (14:51)
[2024-04-25] MEDS: guaiFENesin 600 MG Tab.ER PO ONE (16:51)
[2024-04-25] MEDS: acetaZOLAMIDE 500 MG Vial IVPUSH ONE (16:52)
[2024-04-25] MEDS: Pantoprazole 40 MG Vial IVPUSH ONE (16:52)
[2024-04-25 18:32] LABS: O2 DELIVERY DEVICE BIPAP
[2024-04-25] MEDS: Insulin Lispro 100 Units/ML 3 ML Vial SUBCUT SCH (18:34)
[2024-04-25 18:36] LABS: BASOPHILS PERCENT AUTO 0.1 % (0.0-1.0); HEMATOCRIT 40.6 % (37.0-47.0); HEMOGLOBIN 11.8 g/dL (12.0-16.0); MEAN CORPUSCULAR HEMOGLOBIN 28.9 pg (27.0-34.0); MEAN CORPUSCULAR HGB CONC 29.1 g/dL (33.0-35.0); MEAN CORPUSCULAR VOLUME 99.3 fL (80-100); MONOCYTES PERCENT AUTO 1.3 % (2-8); NEUTROPHILS PERCENT AUTO 96.6 % (42.2-75.2); PLATELET COUNT,PLT 459 10^3/uL (150-450); RED BLOOD CELL COUNT 4.09 10^6/uL (4.2-5.4)
[2024-04-25 18:45] LABS: BASE EXCESS VENOUS 5.6 mmol/l ((-2)-(+3)); BICARBONATE,VENOUS 40 mmol/l (19-25); O2 SATURATION VENOUS 97.9 % (60-80); PCO2 VENOUS 133 mmHg (41-51); PO2 VENOUS 128 mmHg (35-42)
[2024-04-25 19:07] LABS: A/G RATIO 0.53; ALBUMIN 2.9 g/dL (3.4-5.0); ANION GAP 4.3 mEq/L (7-13); BILIRUBIN TOTAL 0.4 mg/dL (0.2-1.0); BUN/CREATININE RATIO 24.3 (No establ ref range); CALCIUM 9.3 mg/dL (8.5-10.1); CREATININE 0.7 mg/dL (0.55-1.02); EST CRCL DRUG DOSING (CG) 33.98 mL/min; POTASSIUM,K 4.3 mmol/L (3.5-5.1); PROTEIN TOTAL,TP 8.4 g/dL (6.4-8.2)
[2024-04-25] MEDS ORDERED: Atropine 1% Ophth Soln 5 ML Bottle SL PRN (20:30)
[2024-04-25] MEDS ORDERED: guaiFENesin 600 MG Tab.ER PO SCH (21:00)
[2024-04-25] MEDS ORDERED: Saccharomyces Boulardii (Probiotic) 250 MG Cap PO SCH (21:00)
[2024-04-25] MEDS ORDERED: Sodium Chloride 0.9% 10 ML Syringe FLUSH SCH (21:00)
[2024-04-25] MEDS ORDERED: Apixaban 5 MG Tab PO SCH (21:00)
[2024-04-25] MEDS ORDERED: Metoprolol Tartrate 25 MG Tab PO SCH (21:00)
[2024-04-25] MEDS: LORazepam 2 MG/ML SDV IVPUSH PRN (21:51)
[2024-04-25] MEDS: Scopalamine 1mg/3day Transdermal Patch TOP ONE (21:52)
[2024-04-25] MEDS: Morphine 2 MG/ML SYRINGE IVPUSH PRN (21:52)
[2024-04-25 22:22] VITALS: BP 119/53; PULSE 76
[2024-04-25] MEDS: Magnesium Sulfate/Water Premix 2 GM in Premix Bag 1 BAG IV ONE (22:54)
[2024-04-26] MEDS: Formoterol/Mometasone 200-5 MCG 8.8 GM Inhaler INH SCH (01:48)
[2024-04-26] MEDS: Albuterol/Ipratropium 3.0-0.5 MG/3 ML Neb Soln NEB SCH (01:51)
[2024-04-26] MEDS: methylPREDNISolone Sodium Succinate 125 MG/2 ML SDV IVPUSH SCH (01:51)
[2024-04-26] MEDS: Ampicillin/Sulbactam Na 1.5 GM in Sodium Chloride 0.9% 100 ML IV SCH (01:51)
[2024-04-26] MEDS ORDERED: acetaZOLAMIDE 500 MG Vial IVPUSH SCH (06:00)
[2024-04-26] MEDS ORDERED: Tiotropium Bromide 4 GM Inhalation Spray (2.5mcg/1 dose; 10 doses) INH SCH (06:00)
[2024-04-26] MEDS ORDERED: Magnesium Oxide 400 MG Tab PO SCH (06:00)
[2024-04-26] MEDS ORDERED: Pantoprazole 40 MG Tab.CR PO SCH (06:00)
== END 2024-04-26 05:40 | disposition expired | DRG 871 ==
LOC: DL.ED 09:25 → DL.MS 12:17 → UNDOADMIN 12:18 → DL.MS 12:18 → UNDODISIN 04-26 05:40
PROVIDERS: ADMIT Internal Medicine; ATTEND Internal Medicine
PROC: 3E03329 Introduction of Other Anti-infective into Peripheral Vein, Percutaneous Approach (ICD-10-PCS; principal; 2024-04-25)
PROC: 5A09357 Assistance with Respiratory Ventilation, Less than 24 Consecutive Hours, Continuous Positive Airway Pressure (ICD-10-PCS; 2024-04-25)
DX: J18.9 Pneumonia, unspecified organism (principal); A41.59 Other Gram-negative sepsis; E43 Unspecified severe protein-calorie malnutrition; J96.21 Acute and chronic respiratory failure with hypoxia; J96.22 Acute and chronic respiratory failure with hypercapnia; J15.0 Pneumonia due to Klebsiella pneumoniae; J15.211 Pneumonia due to Methicillin susceptible Staphylococcus aureus; J44.0 Chronic obstructive pulmonary disease with (acute) lower respiratory infection; J44.1 Chronic obstructive pulmonary disease with (acute) exacerbation; Z68.1 Body mass index [BMI] 19.9 or less, adult; I48.20 Chronic atrial fibrillation, unspecified; E87.1 Hypo-osmolality and hyponatremia; R64 Cachexia; E87.20 Acidosis, unspecified; J47.0 Bronchiectasis with acute lower respiratory infection; A41.01 Sepsis due to Methicillin susceptible Staphylococcus aureus; R65.20 Severe sepsis without septic shock; Z66 Do not resuscitate; Z51.5 Encounter for palliative care; T38.0X5A Adverse effect of glucocorticoids and synthetic analogues, initial encounter; J43.1 Panlobular emphysema; E87.8 Other disorders of electrolyte and fluid balance, not elsewhere classified; K21.9 Gastro-esophageal reflux disease without esophagitis; R74.01 Elevation of levels of liver transaminase levels; I11.0 Hypertensive heart disease with heart failure; M19.90 Unspecified osteoarthritis, unspecified site; D50.9 Iron deficiency anemia, unspecified; F41.9 Anxiety disorder, unspecified; R73.9 Hyperglycemia, unspecified; I50.9 Heart failure, unspecified; I49.5 Sick sinus syndrome; K59.09 Other constipation; E83.52 Hypercalcemia; H54.7 Unspecified visual loss; Z95.0 Presence of cardiac pacemaker; Z88.6 Allergy status to analgesic agent; Z99.81 Dependence on supplemental oxygen; Z79.899 Other long term (current) drug therapy; Z87.891 Personal history of nicotine dependence; Z79.01 Long term (current) use of anticoagulants; Z79.52 Long term (current) use of systemic steroids
CPT/HCPCS: 0240U; 36415; 70450; 71045; 71260; 80053; 82803; 82947; 83605; 83735; 83880; 84145; 84484; 85025; 85379; 85610; 85730; 86140; 87040; 87070; 87205; 93005; 93010; 96374; 99223; 99238; 99285; 87077; 87186; A9270-GY; J0456; J0696; J1120; J2060; J2270; J2470; J2919; J3370; J7050; J7613-GY; Q9967